=== PATIENT | female | born 1930 | race African-American/Black ===

== ENCOUNTER 2016-10-04 23:52 | Inpatient (IN) | payer MEDICARE, OTHER ==
--- NOTE | ~2016-10-04 | HP ---
History And Physical [place] [id number] [facility] [place]. [address] NAME: JESSICA URENA : 31 STATUS : ADM Elizabeth PAT#: [id number] AGE: 86 ADM/REG DATE : 10/04/16 MR#: [id number] REPORT SERV DATE: 10/05/16 DICTATED BY: DATE: REPORT STATUS : Draft TRANSCRIBED BY: MODL DATE: 10/05/16 DATE OF ADMISSION: 10/04/2016 CHIEF COMPLAINT: Bleeding from left ear. HISTORY OF PRESENT ILLNESS: Ms Urena is an 86-year-old black female with end-stage renal disease, dialyzes Monday, Monday, and Monday at [facility]. She has AFib with RVR, on Coumadin, followed by Dr. Aquino. Apparently, she had been Dr. Aquino's office, her INR was high. She was told if she experience any bleeding to present to the emergency department. She developed bleeding from her left ear canal, and therefore, presented to the ER. INR was found to be 8.4. H and H have been stable. Given this, she has been admitted for further evaluation. She denies any shortness of breath, chest pain, tightness, or pressure. No fevers or chills. PAST MEDICAL HISTORY: End-stage renal disease; vertigo; AFib; osteoarthritis; diabetes; hypertension; gout; obstructive sleep apnea; asthma, wears chronic O2 at home; secondary hyperparathyroidism and peripheral neuropathy. SOCIAL HISTORY: She has a son who lives with her. No tobacco, alcohol, or illicit drug use. FAMILY MEDICAL HISTORY: No end-stage renal disease. ALLERGIES: NONE. MEDICATIONS: Coumadin is being held, albuterol, allopurinol, aspirin, Lipitor, Alphagan, digoxin, Neurontin, insulin, Levemir, Imdur, lisinopril, Antivert, and Renvela. REVIEW OF SYSTEMS: A 12-point review of systems was obtained and negative with the exception of that in the HPI. PHYSICAL EXAMINATION: VITAL SIGNS: Temp 98.4, blood pressure is 116/60, pulse 80, respiratory rate 24, and O2 saturation of 98% on 3 liters. GENERAL: This is a pleasant, cooperative, chronically ill-appearing black female. She is awake, alert, and oriented x3, in no acute distress, answers questions appropriately. HEENT: Normocephalic and atraumatic. Conjunctivae are clear. Sclerae are anicteric. To her left ear canal, there is dry dark blood. No active bleeding. Does not look swollen. No other drainage noted. Oral mucosa is moist. NECK: Supple. Carotids are brisk. Neck veins are flat. No lymphadenopathy. LUNGS: Respirations are even and unlabored. Breath sounds clear to auscultation. HEART: Rate is irregularly irregular. She does have a systolic murmur. No rub or gallop. ABDOMEN: Soft and nontender. Bowel sounds are active. No masses. No hepatosplenomegaly. No bruits. No CVA tenderness. BACK: Within normal limits. EXTREMITIES: With trace to 1+ pitting edema. History And Physical [address] [address] NAME: JESSICA URENA : 31 STATUS : ADM Elizabeth PAT#: [id number] AGE: 86 ADM/REG DATE : 10/04/16 MR#: [id number] REPORT SERV DATE: 10/05/16 DICTATED BY: DATE: REPORT STATUS : Draft TRANSCRIBED BY: MODL DATE: 10/05/16 SKIN: Warm, dry, and intact. No unusual rashes or skin lesions. NEURO: No focal deficits. Mood and affect, pleasant and appropriate. PERTINENT LABS AND X-RAYS: INR is down to 5 from 8.2. Sodium 145, potassium 4.1, chloride 106, BUN of 29, creatinine of 5.8, and calcium 8.2. LFTs are unremarkable. Albumin of 2.3. WBC 8.2, H and H 9 and 28, and platelets 391,000. Chest x-ray; some questionable edema versus fibrotic changes. CT of the abdomen negative with the exception of edema. CT of the head negative. IMPRESSION: 1. Coagulopathy in the setting of Coumadin. 2. Left ear bleeding. 3. Atrial fibrillation. 4. End-stage renal disease. 5. Diabetes. 6. Hypertension. PLAN: She has been given vitamin K, and we will follow INR. Cardiology has been consulted as well as ENT. She will have dialysis today. Hold Coumadin and aspirin and follow for any further bleeding. Follow H and H. Further orders and recommendations pending clinical course. LITTLE/PELON MEHRAN New / [id number] CC: Jignesh Rich Jr., D.O.
--- NOTE | ~2016-10-04 | CN ---
Consultation Report [place] [id number] [facility] [place]. [address] NAME: JESSICA URENA : 31 STATUS : ADM Elizabeth PAT#: [id number] AGE: 86 ADM/REG DATE : 10/04/16 MR#: [id number] REPORT SERV DATE: 10/05/16 DICTATED BY: AMRIT NGUYỄN DATE: 10/05/16 REPORT STATUS : Draft TRANSCRIBED BY: MODL DATE: 10/05/16 CARDIOVASCULAR CONSULTATION DATE OF CONSULTATION: This is a cardiovascular consultation requested by Dr. Regis Bravo. INDICATION: Atrial fibrillation, elevated INR. HISTORY OF PRESENT ILLNESS: Ms Urena is an 86-year-old woman, previously followed by Dr. Antony Aquino at [place] for cardiology care. She has a history of hypertension; hypercholesterolemia; type 2 diabetes; and end-stage renal disease, on hemodialysis. She has a history of chronic diastolic congestive heart failure and paroxysmal atrial fibrillation. She was hospitalized last month with atrial fibrillation. She converted spontaneously to sinus rhythm. She was started on Coumadin. She was admitted with bleeding from her ear in the setting of an elevated INR of 8.4. Her initial EKG showed sinus rhythm with PACs. Subsequent EKG shows rate controlled atrial fibrillation. She is not having any chest pain. She has some mild dyspnea. PAST MEDICAL HISTORY: 1. Hypertension. 2. Hypercholesterolemia. 3. Type 2 diabetes. 4. End-stage renal disease, on hemodialysis. 5. Chronic diastolic congestive heart failure. 6. Paroxysmal atrial fibrillation. SOCIAL HISTORY: She does not smoke or drink alcohol. FAMILY HISTORY: There is no family history of early coronary artery disease. REVIEW OF SYSTEMS: A complete review of systems was obtained, which is negative in detail except as mentioned above in the HPI. ALLERGIES: NO KNOWN DRUG ALLERGIES. MEDICATIONS: Albuterol, allopurinol 100 mg daily, aspirin 81 mg daily, Lipitor 20 mg daily, eye drops, digoxin 0.125 mg daily, Neurontin, insulin, Imdur 30 mg a day, Prinivil 2.5 mg daily, meclizine, Renvela, and Coumadin. PHYSICAL EXAMINATION: VITAL SIGNS: Blood pressure 105/52, heart rate of 75, respiratory rate of 14. GENERAL: Comfortable in no acute distress. Consultation Report [place] [id number] [facility] [place]. [address] NAME: JESSICA URENA : 31 STATUS : ADM Elizabeth PAT#: [id number] AGE: 86 ADM/REG DATE : 10/04/16 MR#: [id number] REPORT SERV DATE: 10/05/16 DICTATED BY: AMRIT NGUYỄN DATE: 10/05/16 REPORT STATUS : Draft TRANSCRIBED BY: PELON DATE: 10/05/16 HEENT: Anicteric. No xanthelasma. Lips without cyanosis. NECK: No JVD. Carotids 2+ and symmetric. No carotid bruits. LUNGS: CTA bilaterally. No wheezes or rhonchi. No accessory muscle use. COR: Irregularly irregular. Normal S1 and S2. ABD: Soft, nontender, nondistended. Normal bowel sounds. No abdominal bruits. EXT: No clubbing, cyanosis or edema 2+ and symmetric distal pulses. SKIN: Warm. Dry. No venous stasis changes. MS: No kyphosis. NEURO/PSYCH: Oriented x3. No anxiety or depression. LABORATORY STUDIES: Potassium of 4.2, creatinine of 5.7, and INR of 8.4. EKG: A 12-lead EKG shows atrial fibrillation, 75 beats per minute. Right bundle-branch block pattern. Nonspecific T-wave abnormalities noted. IMPRESSION: This is an 86-year-old woman with a history of end-stage renal disease, on hemodialysis and paroxysmal atrial fibrillation. It appears she is relatively asymptomatic even when in atrial fibrillation. Her rate appears controlled. It may be reasonable simply to continue her anticoagulation watermaster, although at a lower dose of Coumadin for an INR goal of 2 to 3. I do not think a cardioversion is the appropriate step since she seems rate controlled and asymptomatic and is going frequently in between atrial fibrillation and normal sinus rhythm. BENJAMIN/PELON rit Nguyễn M.D. / [id number] CC: Jignesh Rich Jr., D.OCassandra
[~2016-10-04 23:52] MED LIST: ALBUTEROL PO; ALPHAGAN OPH; ALPHAGAN P0.1 % OPH; ALPHAGAN P0.15 % OPH; APRES50 PO; ASAB PO; C1 PO; CEFT2 PO; CENTRUM TAB1 TAB OR; COREG12 PO; COREG6 PO; COUMADIN4 MG PO; DCN100 PO; DEMA100 PO; DOCUSOFT S100 MG PO; DSS PO; HALF81 PO; HYDROCODONE; IMDUR30 PO; INSULIN; ISOSORB DIN30 MG PO; KLOR-CON M2020 MEQ PO; LANTUS FOR SC; LANTUS SC; LEVEMIR SC; LIPITOR20 PO; LORTAB 5 PO; MCZ125; MCZ125 PO; METOLAZONE5 MG OR; MIRALAXPKT PO; NEUR100 PO; NOVOLOG SC; PRILO PO; PRIN2.5 PO; PROAIR HFA INH; RENVELA800 MG PO; ROCALTROL 0.0.25 MCG OR; SENSIPAR90 MG PO; SEVE800T PO; STARLIX120 PO; SULAR25.5 MG PO; TRAVATAN OPH; VITD PO; VYTORIN 10/20 T1 TAB PO; Z100 PO; Z5 PO
[2016-10-05 00:47] LABS: BASOPHILS 0.2 %; BASOPHILS ABSOLUTE 0.02 10/3/uL (0.0-0.16); EOSINOPHILS ABSOLUTE 0.08 10/3/uL (0.0-0.53); HEMATOCRIT 30.4 % (36.0-48.0); IMMATURE GRANULOCYTES 0.4 %; IMMATURE GRANULOCYTES ABSOLUTE 0.03 10/3/uL (0.0-0.11); LYMPHOCYTES 14.9 %; LYMPHOCYTES ABSOLUTE 1.23 10/3/uL (0.67-4.30); MEAN CORPUS HGB CONC 32.9 g/dL (32.0-36.0); MEAN CORPUSCULAR HEMOGLOB 31.3 pg (26.0-34.0); MEAN CORPUSCULAR VOLUME 95.3 fL (80-100); MEAN PLATELET VOLUME 9.4 fL (9.2-13.0); MONOCYTES 12.8 %; MONOCYTES ABSOLUTE 1.06 10/3/uL (0.21-1.20); NEUTROPHILS 70.7 %; NEUTROPHILS ABSOLUTE 5.86 10/3/uL (2.02-8.40); RBC DISTRIBUTION WIDTH 14.7 % (12.0-16.0); RED CELL COUNT 3.19 10/6/uL (4.0-5.6)
[2016-10-05 00:48] LABS: ER CBC TAT 0 Hrs 11 MinsNP; MANUAL DIFF NO %; PLATELET COUNT 402 10/3/uL (150-400); WHITE BLOOD CELLS 8.3 10/3/uL (4.5-10.5)
[2016-10-05 00:58] LABS: A/G RATIO 0.7 (0.7-1.9); ALBUMIN 2.6 G/DL (3.5-5.0); ALKALINE PHOSPHATASE 220 U/L (45-117); BUN (BLOOD UREA NITROGEN) 46 MG/DL (6-23); CALCIUM, SERUM 8.4 MG/DL (8.5-10.4); CHLORIDE, SERUM 105 MMOL/L (96-112); CO2 (CARBON DIOXIDE) 28 MMOL/L (24-34); CREATININE 5.71 MG/DL (0.55-1.02); GFR AFRICAN AMERICAN 7 ML/MIN (>=60); GFR NON AFRICAN AMERICAN 6 ML/MIN (>=60); GLOBULIN 3.6 G/DL (2.5-4.1); GLUCOSE, SERUM 128 MG/DL (60-99); POTASSIUM, SERUM 4.2 MMOL/L (3.5-5.3); SGOT(AST) 9 U/L (5-40); SGPT(ALT) 8 U/L (5-65); SODIUM, SERUM 145 MMOL/L (135-148); TOTAL BILIRUBIN 0.4 MG/DL (0-1.2); TOTAL PROTEIN 6.2 G/DL (6.0-8.5)
[2016-10-05 01:00] LABS: INTERNATIONAL NORMAL RATI 8.4 UNITS (-); PROTIME (NOT ORD) 68.9 SEC (12.0-14.5)
[2016-10-05] MEDS ORDERED: SEVE800T PO (03:58)
[2016-10-05] MEDS ORDERED: PROAIR HFA INH (04:02)
[2016-10-05] MEDS ORDERED: LAN125 PO (04:04)
[2016-10-05 07:51] LABS: BASOPHILS 0.4 %; BASOPHILS ABSOLUTE 0.03 10/3/uL (0.0-0.16); EOSINOPHILS ABSOLUTE 0.16 10/3/uL (0.0-0.53); HEMATOCRIT 28.9 % (36.0-48.0); HEMOGLOBIN 9.4 g/dL (12.0-16.0); IMMATURE GRANULOCYTES 0.2 %; IMMATURE GRANULOCYTES ABSOLUTE 0.02 10/3/uL (0.0-0.11); LYMPHOCYTES 15.8 %; LYMPHOCYTES ABSOLUTE 1.29 10/3/uL (0.67-4.30); MANUAL DIFF NO %; MEAN CORPUS HGB CONC 32.5 g/dL (32.0-36.0); MEAN CORPUSCULAR VOLUME 95.4 fL (80-100); MEAN PLATELET VOLUME 9.6 fL (9.2-13.0); MONOCYTES ABSOLUTE 1.06 10/3/uL (0.21-1.20); NEUTROPHILS 68.6 %; PLATELET COUNT 391 10/3/uL (150-400); RBC DISTRIBUTION WIDTH 14.8 % (12.0-16.0); RED CELL COUNT 3.03 10/6/uL (4.0-5.6); WHITE BLOOD CELLS 8.2 10/3/uL (4.5-10.5)
[2016-10-05 08:06] LABS: A/G RATIO 0.7 (0.7-1.9); ALBUMIN 2.3 G/DL (3.5-5.0); ALKALINE PHOSPHATASE 204 U/L (45-117); BUN (BLOOD UREA NITROGEN) 49 MG/DL (6-23); CALCIUM, SERUM 8.2 MG/DL (8.5-10.4); CHLORIDE, SERUM 106 MMOL/L (96-112); CO2 (CARBON DIOXIDE) 27 MMOL/L (24-34); CREATININE 5.88 MG/DL (0.55-1.02); GFR AFRICAN AMERICAN 7 ML/MIN (>=60); GFR NON AFRICAN AMERICAN 6 ML/MIN (>=60); GLOBULIN 3.4 G/DL (2.5-4.1); GLUCOSE, SERUM 117 MG/DL (60-99); POTASSIUM, SERUM 4.1 MMOL/L (3.5-5.3); SGOT(AST) 10 U/L (5-40); SGPT(ALT) 8 U/L (5-65); SODIUM, SERUM 145 MMOL/L (135-148); TOTAL BILIRUBIN 0.4 MG/DL (0-1.2); TOTAL PROTEIN 5.7 G/DL (6.0-8.5)
[2016-10-05 17:24] LABS: INTERNATIONAL NORMAL RATI 2.1 UNITS (-)
[2016-10-05 17:27] LABS: PROTIME (NOT ORD) 23.3 SEC (12.0-14.5)
[2016-10-06 07:01] LABS: BASOPHILS 0.5 %; BASOPHILS ABSOLUTE 0.03 10/3/uL (0.0-0.16); EOSINOPHILS 6.2 %; EOSINOPHILS ABSOLUTE 0.37 10/3/uL (0.0-0.53); HEMATOCRIT 32.1 % (36.0-48.0); IMMATURE GRANULOCYTES 0.5 %; IMMATURE GRANULOCYTES ABSOLUTE 0.03 10/3/uL (0.0-0.11); LYMPHOCYTES 21.2 %; LYMPHOCYTES ABSOLUTE 1.27 10/3/uL (0.67-4.30); MANUAL DIFF NO %; MEAN CORPUS HGB CONC 31.2 g/dL (32.0-36.0); MEAN CORPUSCULAR VOLUME 96.4 fL (80-100); MEAN PLATELET VOLUME 9.2 fL (9.2-13.0); MONOCYTES 15.4 %; MONOCYTES ABSOLUTE 0.92 10/3/uL (0.21-1.20); NEUTROPHILS 56.2 %; NEUTROPHILS ABSOLUTE 3.37 10/3/uL (2.02-8.40); PLATELET COUNT 367 10/3/uL (150-400); RBC DISTRIBUTION WIDTH 14.6 % (12.0-16.0); RED CELL COUNT 3.33 10/6/uL (4.0-5.6)
[2016-10-06 07:03] LABS: INTERNATIONAL NORMAL RATI 1.6 UNITS (-)
[2016-10-06 07:04] LABS: PROTIME (NOT ORD) 18.8 SEC (12.0-14.5)
[2016-10-06 07:13] LABS: ALBUMIN 2.2 G/DL (3.5-5.0); CALCIUM, SERUM 8.4 MG/DL (8.5-10.4); CHLORIDE, SERUM 102 MMOL/L (96-112); CO2 (CARBON DIOXIDE) 29 MMOL/L (24-34); GLUCOSE, SERUM 98 MG/DL (60-99); POTASSIUM, SERUM 3.7 MMOL/L (3.5-5.3); SODIUM, SERUM 142 MMOL/L (135-148)
[2016-10-06 07:14] LABS: BUN (BLOOD UREA NITROGEN) 31 MG/DL (6-23); CREATININE 4.14 MG/DL (0.55-1.02); GFR AFRICAN AMERICAN 11 ML/MIN (>=60); GFR NON AFRICAN AMERICAN 9 ML/MIN (>=60); PHOSPHORUS, SERUM 3.2 MG/DL (2.5-4.5)
[2016-10-06] MEDS ORDERED: OCUFLOX OPH (15:23)
== END 2016-10-06 17:48 | disposition home health service (06) | DRG 813 ==
LOC: ER 23:52 → 1SO 23:59
PROVIDERS: Emergency Medicine; Internal Medicine Cardiovascular Disease; Internal Medicine Nephrology; Nurse Practitioner Family
PROC: 5A1D00Z (ICD-10-PCS; principal; 2016-10-05)
DX: D68.32 Hemorrhagic disorder due to extrinsic circulating anticoagulants (principal); I13.2 Hypertensive heart and chronic kidney disease with heart failure and with stage 5 chronic kidney disease, or end stage renal disease; N18.6 End stage renal disease; I50.32 Chronic diastolic (congestive) heart failure; E11.22 Type 2 diabetes mellitus with diabetic chronic kidney disease; I48.0 Paroxysmal atrial fibrillation; Z99.81 Dependence on supplemental oxygen; J45.909 Unspecified asthma, uncomplicated; G47.33 Obstructive sleep apnea (adult) (pediatric); H92.22 Otorrhagia, left ear; E78.00 Pure hypercholesterolemia, unspecified; T45.525A Adverse effect of antithrombotic drugs, initial encounter; Z99.2 Dependence on renal dialysis; Z79.4 Long term (current) use of insulin; Z79.82 Long term (current) use of aspirin; Z79.01 Long term (current) use of anticoagulants
CPT/HCPCS: 36415; 70450; 71020; 74176; 80053; 80069; 82962; 85025; 85610; 86850; 86900; 86901; 93005; 94640; 96374; 97162-GP; 99291; A9270-GY; G0257; G8978-CK-GP; G8979-CI-GP; J3430

== ENCOUNTER 2016-10-13 08:40 | Inpatient (IN) | payer MEDICARE, OTHER ==
--- NOTE | ~2016-10-13 | DS ---
Discharge Summary [facility] [address] [place]. [address] NAME: JESSICA URENA : 32 STATUS : DIS IN PAT#: [id number] AGE: 86 ADM/REG DATE : 10/13/16 MR#: [id number] REPORT SERV DATE: 11/02/16 DICTATED BY: MEENA TARANGO DATE: 11/01/16 REPORT STATUS : Draft TRANSCRIBED BY: PELON DATE: 11/01/16 Data Collection from hospitalization DISCHARGE DIAGNOSES: 1. Shortness of breath/pulmonary edema. 2. Paroxysmal atrial fibrillation. 3. End-stage renal disease. 4. Diabetes mellitus. 5. Hypertension. 6. Obstructive sleep apnea. 7. Gout. 8. History of smoke exposure at home. 9. Hypothyroidism. 10.Peripheral neuropathy. CONSULTATIONS: Dr. Jf Rose. Dr. Amrit Orta. PROCEDURES PERFORMED: CT scan of the chest without contrast, 10/13/2016. DISCHARGE MEDICATIONS: Zyloprim 100 mg daily; aspirin 162 mg daily; Alphagan one drop twice a day; Lanoxin 0.125 mg on Tuesdays, , and Saturdays; guaifenesin 600 mg twice a day; NovoLog injection insulin as instructed; Protonix 40 mg before breakfast; Coumadin as instructed; glucose three tablets as needed; Robitussin AC 10 mL every four hours as needed; [place] 5/325 one tablet every four hours as needed; Ativan 0.5 mg at bedtime as needed; Antivert 12.5 mg every eight hours as needed; nitroglycerin 0.4 mg sublingually as needed; Proventil 1.5 mL via inhaler every two hours as needed and two puffs via inhaler as needed. CONDITION AT DISCHARGE: Stable. DISPOSITION: The patient was discharged to [facility] on a renal/diabetic diet with activities as instructed. HOSPITAL COURSE: This is an 86-year-old female, who has end-stage renal disease. She undergoes dialysis on Mondays, Wednesdays, and Fridays through a right upper arm AV fistula. She has a history of paroxysmal atrial fibrillation. She had been started on Coumadin during an admission here at [facility] from 09/19/2016 through 09/23/2016. She had been seen by Cardiology during that hospitalization. She did not undergo cardioversion. Echocardiogram at that time showed an ejection fraction 55% with severe left ventricular hypertrophy, restrictive diastolic dysfunction, and right ventricular systolic pressure of 34 mmHg. She went home on Coumadin only to be re-admitted on 10/04/2016 with an INR level of 8.4 and bleeding from her left ear canal. ENT was consulted, but apparently she was never seen by them during that hospitalization. Her Coumadin was reduced and her INR level normalized. She went home on 10/06/2016. On the day of this admission, she was brought in by her family for worsening dyspnea. She wears chronic oxygen at home. Her chest x-ray showed bilateral "parenchymal scarring." Her white count was 10,300. Influenza was negative. She had an INR level of 2.0. She was admitted to the hospital for further evaluation and treatment. Discharge Summary [address] [address] NAME: JESSICA URENA : 31 STATUS : DIS IN PAT#: [id number] AGE: 86 ADM/REG DATE : 10/13/16 MR#: [id number] REPORT SERV DATE: 11/02/16 DICTATED BY: MEENA TARANGO DATE: 11/01/16 REPORT STATUS : Draft TRANSCRIBED BY: PELON DATE: 11/01/16 Upon admission, influenza A and B were negative. INR level was 1.2. Creatinine was 4.6. She was going to undergo extra dialysis and ultrafiltration. The reason for her dyspnea at this time was unclear. Empiric antibiotics were going to begin. She was seen in consultation by Dr. Jf Rose regarding possible pneumonia. The patient was chronically on 3 L of supplemental oxygen. She has a cough that is not productive of purulent sputum. She is not on bronchodilator medications at home. There is no clear history of intrinsic lung disease. CT scan was ordered to better look at her parenchyma. Albuterol would be given half dose as needed for worsening respiratory distress. Oxygen would be titrated to maintain saturations in the 90% to 94% range. The patient was empirically placed on HCAP coverage. Azithromycin was discontinued. Levaquin was continued. Vancomycin was going to be dosed here by the pharmacy with bolus dosing and cefepime per dialysis dosing. Repeat procalcitonin level would be checked the following day. Sputum was sent for Gram stain and culture. Flu screen was negative. Troponin would be added to the blood work. Outpatient medications were continued. A CT scan of the chest without contrast was performed. The following day, her CT had shown patchy ground glass and a 3-mm nodule. Chest x-ray showed vascular congestion. She did have a dry cough. She had no wheezing. She said she was not feeling better. She still has some shortness of breath. Her INR level was 2.2. Heparin drip was started. The dose was increased. She had a normal respiratory effort. She had no edema. Vancomycin/cefepime were stopped. She had mild edema. She was evaluated by Occupational Therapy. On 10/17/2016, hemodialysis therapy was performed. She was seen by Dr. Amrit Orta regarding dyspnea and chest discomfort. She had some worsening dyspnea and a cough. There was a report of chest pain on hemodialysis. Creatinine level was 6.81. It was felt that there may be a component of [id number] diastolic congestive heart failure. He agreed with plans to run her a bit dryer at hemodialysis. Her troponins did not seem consistent with acute coronary syndrome. He was not very anxious to pursue an invasive cardiac strategy as she has a relative poor baseline functional status. It was felt that her chest pain may be more musculoskeletal in the context of coughing. For now, he recommended continued medical management. Today, she was evaluated by Occupational and Physical Therapy. Her shortness of breath had improved. She had no chest pain. Echocardiogram revealed normal ejection fraction of 65%. She had positive left ventricular hypertrophy. Her nuclear stress test showed no ischemia. Coumadin was continued. She was in a sinus rhythm with frequent PACs. Sliding scale insulin continued. She was hypotensive at times. On 10/20/2016, she continued to have a cough and shortness of breath. She had no edema. She continued to undergo hemodialysis therapy. Discharge planning was performed. She underwent heart failure education. On 10/22/2016, her shortness of breath had improved. She still had a cough with green sputum. Discharge instructions were given. Due to her improved and stable condition, she was discharged to [facility] with the above-stated instructions. Information collected by: Alison Garcia I submit the above information as my discharge summary. Discharge Summary [place] [address] [place]. [address] NAME: JESSICA URENA : 31 STATUS : DIS IN PAT#: [id number] AGE: 86 ADM/REG DATE : 10/13/16 MR#: [id number] REPORT SERV DATE: 11/02/16 DICTATED BY: MEENA TARANGO DATE: 11/01/16 REPORT STATUS : Draft TRANSCRIBED BY: PELON DATE: 11/01/16 TG/PELON Meena Tarango M.D. / [id number] CC: Jf Holland M.D. [facility] Jignesh Hill MD
--- NOTE | ~2016-10-13 | CN ---
Consultation Report [facility] [address] [place]. [address] NAME: JESSICA URENA : 31 STATUS : ADM IN PAT#: [id number] AGE: 86 ADM/REG DATE : 10/13/16 MR#: [id number] REPORT SERV DATE: 10/13/16 DICTATED BY: EDA ROSE IV DATE: 10/13/16 REPORT STATUS : Draft TRANSCRIBED BY: PELON DATE: 10/13/16 PULMONARY CONSULTATION DATE OF CONSULTATION: 10/13/2016 REQUESTING PHYSICIAN: Eda Holland M.D. REASON FOR REQUEST: Possible pneumonia. HISTORY OF PRESENT ILLNESS: History was obtained from the records and from the patient. Ms Urena is an 86-year-old -[place] female with a history of end-stage renal disease, on dialysis, diabetes mellitus, hypertension, recent-onset atrial fibrillation, left ventricular hypertrophy with diastolic heart dysfunction and secondary hyperthyroidism, as well as peripheral neuropathy, who presents with several weeks of dry and nonproductive cough, intermittent chills, and persistent shortness of breath. The patient recently underwent hospitalization with findings of atrial fibrillation with rapid ventricular response. She has undergone medication adjustments and is currently in sinus rhythm. She has had intermittent chest pain, though no perceived palpitations. She has been persistently more short of breath particularly with exertion. There has been no significant peripheral edema, though mild orthopnea. She has intermittent chills for two weeks with a dry and nonproductive cough. There was no exposure to any ill individuals. Her cough is not productive of purulent sputum production. She is chronically on 3 L of supplemental oxygen. She thinks they have been able to pull her to her dry weight. She is not on bronchodilator medications at home. Because of worsening symptoms, she sought evaluation in the emergency room and was admitted. Chest x-ray demonstrates chronic patchy interstitial markings; however, that has reportedly unchanged from earlier studies. PULMONARY HISTORY: Remarkable for no history of childhood asthma. She was told as a young adult, she may have asthma, though has never been on bronchitis medication. She has had pneumonia in the past. She has a 5-pack-year smoking history having quit in her early 20s. She is up-to-date on her immunizations. PAST MEDICAL HISTORY: 1. End-stage renal disease, on dialysis. 2. Diabetes mellitus. 3. Hypertension. 4. Recent atrial fibrillation. 5. Hypothyroidism. 6. Peripheral neuropathy. 7. Obstructive sleep apnea, intolerant of CPAP therapy. SURGERIES: 1. Left AV fistula and then right AV fistula. 2. Bilateral knee replacements. Consultation Report [facility] [address] [place]. [address] NAME: JESSICA URENA : 31 STATUS : ADM IN PAT#: [id number] AGE: 86 ADM/REG DATE : 10/13/16 MR#: [id number] REPORT SERV DATE: 10/13/16 DICTATED BY: EDA ROSE IV DATE: 10/13/16 REPORT STATUS : Draft TRANSCRIBED BY: PELON DATE: 10/13/16 3. Right hip replacement. 4. Hysterectomy. 5. Hernia repair. ALLERGIES: NO KNOWN DRUG ALLERGIES. CURRENT MEDICATIONS: The patient is on Coumadin, Imdur 30 mg daily, Levaquin 750 mg every 48 hours, azithromycin 500 mg daily, digoxin 0.125 mg daily, Levemir 8 units at bedtime, Prinivil 2.5 mg daily, Zyloprim 100 mg daily, and level 1 insulin sliding scale. SOCIAL HISTORY: Remarkable for minimal tobacco use as above. There is no alcohol or illicit drug use. She is . FAMILY HISTORY: Noncontributory. REVIEW OF SYSTEMS: Fourteen system reviewed, pertinent positives noted above. PHYSICAL EXAMINATION: GENERAL: This is a pleasant elderly -[place] female, in no current distress. She is on dialysis. VITAL SIGNS: Temperature is 98.2, respiratory rate is 22, saturation 100% on 4 L via nasal cannula, pulse is 98, and blood pressure is 113/51. HEENT: The patient is normocephalic, atraumatic. She has muddy sclerae. Extraocular movements are intact. She has nasal cannula in place. She has a partial plate on her lower jaw. She has a Mallampati 3 airway with narrowing of the posterior pharyngeal space. NECK: Without any palpable lymphadenopathy or thyromegaly. CHEST: The patient has a fresh vascular graft on the right, old vascular graft on the left. She has few inspiratory crackles at both bases. No wheezes or rhonchi are noted. CARDIOVASCULAR: Jugular venous pulsations appeared to be approximately 7 cm. She has 1+ carotid upstrokes. No obvious bruit. She has a distant regular S1, S2 with a 2/6 systolic murmur at the upper sternal border. There are occasional premature beats. Peripheral pulses are diminished. ABDOMEN: Soft and nontender. There are hypoactive bowel sounds. There is no palpable hepatosplenomegaly or mass. EXTREMITIES: Demonstrate no cyanosis, clubbing, edema, or palpable cords. She has the grafts noted. NEUROLOGIC: The patient is able to move all extremities. Strength is 5-/5 and she has decreased sensation in a stocking distribution. IMAGING: Chest x-ray demonstrates cardiomegaly. There is a, what I think more prominent patchy infiltrates more on the right than the left in the predominantly mid lung field. LABORATORY DATA: CBC: Hemoglobin 9.4, hematocrit 30.2, and platelet count was 303,000. White blood cell count 10.3. INR is 2. Procalcitonin level was 0.43. Sodium is 145, Consultation Report [address] [place]. [address] NAME: JESSICA URENA : 32 STATUS : [facility]#: [id number] AGE: 86 ADM/REG DATE : 10/13/16 MR#: [id number] REPORT SERV DATE: 10/13/16 DICTATED BY: EDA ROSE IV DATE: 10/13/16 REPORT STATUS : Draft TRANSCRIBED BY: PELON DATE: 10/13/16 potassium 4.1, chloride 108, bicarb 27, BUN 37, creatinine 4.63. Glucose of 110. Alkaline phosphatase is 258. Otherwise, unremarkable. ASSESSMENT AND PLAN: 1. Respiratory. The patient has no clear history of intrinsic lung disease. CT has been ordered to better look at her parenchyma. Albuterol will be given half dose as needed for worsening respiratory distress. Oxygen will be titrated to attain saturation in the 90% to 94% range. 2. Infectious disease. The patient will be empirically placed on HCAP coverage. Azithromycin will be discontinued. Levaquin will be continued. Vancomycin will be dosed here per Pharmacy with bolus dosing and cefepime per dialysis dosing, repeat procalcitonin level tomorrow. Sputum was sent for Gram stain and culture if possible. Flu screen was negative. 3. Cardiovascular. Troponin will be added to the blood in the lab. We will continue outpatient medications. 4. Renal. The patient is currently undergoing dialysis. 5. Hematologic. INR is low therapeutic, will be continued to be dosed. Thank you for consulting us. We will follow the patient with you. ZEUS/PELON Eda Rose IV, M.D. / [id number] CC: Eda Holland M.D.
--- NOTE | ~2016-10-13 | HP ---
History And Physical [facility] [address] [place]. [address] NAME: JESSICA URENA : [birth year] STATUS : DIS IN PAT#: [id number] AGE: 86 ADM/REG DATE : 10/13/16 MR#: [id number] REPORT SERV DATE: 10/27/16 DICTATED BY: EDA COSTELLO DATE: 10/13/16 REPORT STATUS : Draft TRANSCRIBED BY: MODCorby DATE: 10/13/16 DATE OF ADMISSION: 10/13/2016 CHIEF COMPLAINT: Dyspnea. HISTORY OF PRESENT ILLNESS: Ms Urena is a very pleasant 86-year-old female with ESRD, who goes to dialysis Monday, Monday, Monday at the [facility] through right upper arm AV fistula. She has a recent history of paroxysmal atrial fibrillation starting on Coumadin during an admission here at [facility] from 09/19/2016 to 09/23/2016. She was seen by Cardiology during that hospitalization. She did not undergo cardioversion. Echo at that time showed EF of 55% with severe LVH, restrictive diastolic dysfunction, and right ventricular systolic pressure of 34 mmHg. She went home on Coumadin only to be readmitted on 10/04/2016 with an INR of 8.4 and bleeding from her left ear canal. ENT was consulted, but apparently she was never seen by them during this hospitalization. Her Coumadin was reduced and INR was normalized. She went home on 10/06/2016. Today, she was brought in by family for worsening dyspnea. She wears chronic oxygen at home. Today, chest x-ray showed bilateral "parenchymal scarring." White count was 10,300. Influenza was negative. An INR was 2.0. There was no ABG, procalcitonin, or BNP done by the ER. PAST MEDICAL HISTORY: 1. ESRD Monday, Monday, Monday, [facility], right upper arm AV fistula. 2. Paroxysmal atrial fibrillation, on Coumadin. 3. Insulin-dependent diabetes mellitus. 4. Obstructive sleep apnea. 5. Hypertension. 6. Gout. 7. Home oxygen dependence. 8. History of osteoarthritis with bilateral knee replacements and right hip replacement. SOCIAL HISTORY: She is a , has a supportive son. She is exposed to smoke at home. REVIEW OF SYSTEMS: Significant for recent nonproductive cough and dyspnea starting today over usual baseline. She has had no fever or chills. PHYSICAL EXAMINATION: VITAL SIGNS: Temperature 97.6, pulse 114, respirations 24, blood pressure 117/51, 98% saturation on 4 L. GENERAL: She is an elderly distressed female with significant dyspnea, tachypnea, and diffuse rhonchi and crackles on exam. HEENT: Sclerae without icterus. Conjunctivae not injected. Oropharynx is clear. NECK: JVP is 8 to 10 cm. CARDIAC: Heart rate tachycardic and irregular with 2/6 murmur. ABDOMEN: Soft, nontender, nondistended. EXTREMITIES: Without edema. History And Physical [address] [place]. [address] NAME: JESSICA URENA : 31 STATUS : DIS IN PAT#: [id number] AGE: 86 ADM/REG DATE : 10/13/16 MR#: [id number] REPORT SERV DATE: 10/27/16 DICTATED BY: EDA COSTELLO DATE: 10/13/16 REPORT STATUS : Draft TRANSCRIBED BY: PELON DATE: 10/13/16 SKIN: Without rash. NEURO: Grossly nonfocal. Right upper arm fistula has palpable thrill, audible bruit. LABORATORY DATA: Sodium 145, potassium 4.1, BUN 37, creatinine 4.6, calcium 8.7, albumin 2.4, glucose 110. White count 10.3. INR 2. Hemoglobin 9.4, platelets 303,000. Influenza A and B were negative. ASSESSMENT AND PLAN: Ms Urena has end-stage renal disease, paroxysmal atrial fibrillation on Coumadin, insulin-dependent diabetes mellitus, sleep apnea, hypertension, oxygen dependence presents with dyspnea. Admit to the Renal Service. We will try extra dialysis and ultrafiltration today. The reason for her dyspnea at this time is unclear. Clinical suspicion for PE is low with chronic anticoagulation and INR of 2.0. She is afebrile with a white count of 10,300 and infectious etiologies need to be considered. She will be given empiric antibiotics. Check ABG, CT of the chest without contrast, nebulizers, Pulmonary consult. Would have a low threshold for transitioning to the IMCU or ICU if she does not clinically improve with hemodialysis. Family not in room at the time of evaluation. ESPERANZA/PELON Eda Costello M.D. / [id number] CC: Eda Costello M.D. [facility]
--- NOTE | ~2016-10-13 | CN ---
Consultation Report [place] [id number] [place]. [address] NAME: JESSICA URENA : [birth year] STATUS : ADM IN [facility]#: [id number] AGE: 86 ADM/REG DATE : 10/13/16 MR#: [id number] REPORT SERV DATE: 10/17/16 DICTATED BY: AMRIT NGUYỄN DATE: 10/17/16 REPORT STATUS : Draft TRANSCRIBED BY: MODL DATE: 10/17/16 CONSULTATION DATE OF CONSULTATION: 10/17/2016 CHIEF COMPLAINT: Dyspnea, chest discomfort. HISTORY OF PRESENT ILLNESS: This is an 86-year-old patient of Dr. Antony Aquino of [facility]. She has a number of cardiovascular risk factors including hypertension, hypercholesterolemia, type 2 diabetes, and end-stage renal disease on hemodialysis. She has been previously admitted with paroxysmal atrial fibrillation, but usually maintain sinus rhythm. She has had some worsening dyspnea and a cough. There is a report of chest pain on hemodialysis. PAST MEDICAL HISTORY: 1. Paroxysmal atrial fibrillation. 2. Hypertension. 3. Hyperlipidemia. 4. Type 2 diabetes. 5. End-stage renal disease, on hemodialysis. 6. Chronic diastolic congestive heart failure. 7. Sleep apnea. 8. Gout. 9. COPD. 10.Arthritis. 11.Peripheral neuropathy. SOCIAL HISTORY: She is a former smoker. She does not drink alcohol. FAMILY HISTORY: There is no family history of early coronary artery disease. REVIEW OF SYSTEMS: A complete review of systems was obtained, which is negative in detail except as mentioned above in the HPI. PHYSICAL EXAMINATION: VITAL SIGNS: Blood pressure 95/50, heart rate of 70, respiratory rate of 14. GENERAL: Comfortable in no acute distress. HEENT: Anicteric. No xanthelasma. Lips without cyanosis. NECK: No JVD. Carotids 2+ and symmetric. No carotid bruits. LUNGS: CTA bilaterally. No wheezes or rhonchi. No accessory muscle use. COR: RRR. Normally placed PMI. Normal S1 and S2. No murmurs, rubs or gallops. ABD: Soft, nontender, nondistended. Normal bowel sounds. No abdominal bruits. EXT: No clubbing, cyanosis or edema 2+ and symmetric distal pulses. Consultation Report [place] [id number] [place]. [address] NAME: JESSICA URENA DOB: [birth year] STATUS : ADM IN PAT#: [id number] AGE: 86 ADM/REG DATE : 10/13/16 MR#: [id number] REPORT SERV DATE: 10/17/16 DICTATED BY: AMRIT NGUYỄN DATE: 10/17/16 REPORT STATUS : Draft TRANSCRIBED BY: PELON DATE: 10/17/16 SKIN: Warm. Dry. No venous stasis changes. MS: No kyphosis. NEURO/PSYCH: Oriented x3. No anxiety or depression. LABORATORY STUDIES: Troponin of 0.15, 0.15, and 0.13. BNP of 456. Hematocrit of 25.9. Creatinine of 6.81, potassium of 4.8. EKG: A 12-lead EKG shows sinus rhythm with premature atrial contractions noted. Nonspecific T-wave abnormalities are noted. Echocardiogram from 10/15/2016 shows concentric left ventricular hypertrophy with preserved left ventricular systolic function, EF 60%. This is an 86-year-old woman with multiple medical problems as listed above. 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 Her troponins do not seem consistent with an acute coronary syndrome. I am not too anxious to pursue an invasive cardiac strategy as she has a relatively poor baseline functional status. I think her chest pain may be more musculoskeletal in the context of coughing. For now, I recommend continued medical management. BENJAMIN/PELON rit Nguyễn M.D. / [id number] CC: Jf Holland M.D.
[~2016-10-13 08:40] MED LIST changes: +LAN125 PO; +OCUFLOX OPH
[2016-10-13 09:29] LABS: BASOPHILS 0.3 %; BASOPHILS ABSOLUTE 0.03 10/3/uL (0.0-0.16); EOSINOPHILS 1.9 %; ER CBC TAT 0 Hrs 05 Mins; HEMATOCRIT 30.2 % (36.0-48.0); HEMOGLOBIN 9.4 g/dL (12.0-16.0); IMMATURE GRANULOCYTES 0.3 %; IMMATURE GRANULOCYTES ABSOLUTE 0.03 10/3/uL (0.0-0.11); LYMPHOCYTES 15.5 %; LYMPHOCYTES ABSOLUTE 1.59 10/3/uL (0.67-4.30); MANUAL DIFF NO %; MEAN CORPUS HGB CONC 31.1 g/dL (32.0-36.0); MEAN CORPUSCULAR HEMOGLOB 29.8 pg (26.0-34.0); MEAN CORPUSCULAR VOLUME 95.9 fL (80-100); MEAN PLATELET VOLUME 9.4 fL (9.2-13.0); MONOCYTES 8.6 %; MONOCYTES ABSOLUTE 0.88 10/3/uL (0.21-1.20); NEUTROPHILS 73.4 %; NEUTROPHILS ABSOLUTE 7.55 10/3/uL (2.02-8.40); PLATELET COUNT 303 10/3/uL (150-400); RBC DISTRIBUTION WIDTH 15.4 % (12.0-16.0); RED CELL COUNT 3.15 10/6/uL (4.0-5.6); WHITE BLOOD CELLS 10.3 10/3/uL (4.5-10.5)
[2016-10-13 09:39] LABS: INFLUENZA A SCREEN NEGATIVE (NEGATIVE); INFLUENZA B SCREEN NEGATIVE (NEGATIVE)
[2016-10-13 09:44] LABS: A/G RATIO 0.6 (0.7-1.9); ALBUMIN 2.4 G/DL (3.5-5.0); ALKALINE PHOSPHATASE 258 U/L (45-117); BUN (BLOOD UREA NITROGEN) 37 MG/DL (6-23); CALCIUM, SERUM 8.7 MG/DL (8.5-10.4); CHLORIDE, SERUM 108 MMOL/L (96-112); CO2 (CARBON DIOXIDE) 27 MMOL/L (24-34); CREATININE 4.63 MG/DL (0.55-1.02); GFR AFRICAN AMERICAN 9 ML/MIN (>=60); GFR NON AFRICAN AMERICAN 8 ML/MIN (>=60); GLOBULIN 3.7 G/DL (2.5-4.1); GLUCOSE, SERUM 110 MG/DL (60-99); POTASSIUM, SERUM 4.1 MMOL/L (3.5-5.3); SGOT(AST) 15 U/L (5-40); SGPT(ALT) 12 U/L (5-65); SODIUM, SERUM 145 MMOL/L (135-148); TOTAL BILIRUBIN 0.4 MG/DL (0-1.2); TOTAL PROTEIN 6.1 G/DL (6.0-8.5)
[2016-10-13] MEDS ORDERED: Z100 PO (11:36)
[2016-10-13] MEDS ORDERED: PROAIR HFA INH (11:36)
[2016-10-13] MEDS ORDERED: ALPHAGAN OPH (11:37)
[2016-10-13] MEDS ORDERED: LAN125 PO (11:37)
[2016-10-13] MEDS ORDERED: IMDUR30 PO (11:38)
[2016-10-13] MEDS ORDERED: LEVEMFLXPN SC (11:38)
[2016-10-13] MEDS ORDERED: MCZ125 PO (11:39)
[2016-10-13] MEDS ORDERED: PRIN2.5 PO (11:39)
[2016-10-13] MEDS ORDERED: COUMADIN3 MG PO (11:39)
[2016-10-13 11:56] LABS: PROTIME (NOT ORD) 22.8 SEC (12.0-14.5)
[2016-10-13 15:51] LABS: PROCALCITONIN 0.43 ng/mL (<0.5)
[2016-10-13 16:44] LABS: BE (BASE EXCESS) 4.3 MEQ/L (0 +/- 2.5); CARBOXYHEMOGLOBIN 0.2 % (0-3); DEVICE Nasal Cannula 4 l; HCO3 (ACTUAL BICARBONATE) 28.3 MEQ/L (23-27); HEMOBLOGIN CONTENT 10.3 G/DL (12-16); INSTRUMENT SERIAL # 8083; METHEMOGLOBIN 0.2 % (0-3); O2 CONTENT 14.1 VOL% (18-24); OPERATOR ID 35798; PCO2 (CO2 TENSION) 40 MMHG (35-45); PO2 (O2 TENSION) 86 MMHG (79-93); SAMPLE Arterial; pH 7.47 (7.37-7.43)
[2016-10-13 17:43] LABS: PROCALCITONIN 0.26 ng/mL (<0.5)
[2016-10-13 18:29] LABS: TROPONIN I 0.15 NG/ML (<0.05)
[2016-10-14 07:05] LABS: ALBUMIN 2.5 G/DL (3.5-5.0); BUN (BLOOD UREA NITROGEN) 32 MG/DL (6-23); CALCIUM, SERUM 8.9 MG/DL (8.5-10.4); CHLORIDE, SERUM 110 MMOL/L (96-112); CO2 (CARBON DIOXIDE) 25 MMOL/L (24-34); CREATININE 3.91 MG/DL (0.55-1.02); GFR AFRICAN AMERICAN 11 ML/MIN (>=60); GFR NON AFRICAN AMERICAN 10 ML/MIN (>=60); GLUCOSE, SERUM 39 MG/DL (60-99); POTASSIUM, SERUM 4.1 MMOL/L (3.5-5.3); SODIUM, SERUM 145 MMOL/L (135-148)
[2016-10-14 07:19] LABS: BASOPHILS 0.2 %; BASOPHILS ABSOLUTE 0.02 10/3/uL (0.0-0.16); EOSINOPHILS 2.1 %; EOSINOPHILS ABSOLUTE 0.18 10/3/uL (0.0-0.53); HEMATOCRIT 28.3 % (36.0-48.0); HEMOGLOBIN 9.1 g/dL (12.0-16.0); IMMATURE GRANULOCYTES 0.6 %; IMMATURE GRANULOCYTES ABSOLUTE 0.05 10/3/uL (0.0-0.11); LYMPHOCYTES 23.2 %; LYMPHOCYTES ABSOLUTE 1.99 10/3/uL (0.67-4.30); MEAN CORPUS HGB CONC 32.2 g/dL (32.0-36.0); MEAN CORPUSCULAR HEMOGLOB 30.7 pg (26.0-34.0); MEAN CORPUSCULAR VOLUME 95.6 fL (80-100); MEAN PLATELET VOLUME 9.3 fL (9.2-13.0); MONOCYTES 16.1 %; MONOCYTES ABSOLUTE 1.38 10/3/uL (0.21-1.20); NEUTROPHILS 57.8 %; NEUTROPHILS ABSOLUTE 4.96 10/3/uL (2.02-8.40); PLATELET COUNT 333 10/3/uL (150-400); RBC DISTRIBUTION WIDTH 15.3 % (12.0-16.0); RED CELL COUNT 2.96 10/6/uL (4.0-5.6); WHITE BLOOD CELLS 8.6 10/3/uL (4.5-10.5)
[2016-10-14 07:22] LABS: MANUAL DIFF NO %
[2016-10-14 07:37] LABS: PROCALCITONIN 0.31 ng/mL (<0.5)
[2016-10-14 10:26] LABS: INTERNATIONAL NORMAL RATI 2.1 UNITS (-); PROTIME (NOT ORD) 23.7 SEC (12.0-14.5)
[2016-10-14 12:35] LABS: C-REACTIVE PROTEIN 77.9 MG/L (<8.0)
[2016-10-15 06:00] LABS: ALBUMIN 2.5 G/DL (3.5-5.0); BUN (BLOOD UREA NITROGEN) 30 MG/DL (6-23); CALCIUM, SERUM 8.8 MG/DL (8.5-10.4); CHLORIDE, SERUM 105 MMOL/L (96-112); CO2 (CARBON DIOXIDE) 27 MMOL/L (24-34); CREATININE 3.92 MG/DL (0.55-1.02); GFR AFRICAN AMERICAN 11 ML/MIN (>=60); GFR NON AFRICAN AMERICAN 10 ML/MIN (>=60); POTASSIUM, SERUM 4.3 MMOL/L (3.5-5.3); SODIUM, SERUM 142 MMOL/L (135-148)
[2016-10-15 06:01] LABS: GLUCOSE, SERUM 120 MG/DL (60-99)
[2016-10-15 06:05] LABS: INTERNATIONAL NORMAL RATI 2.2 UNITS (-); PROTIME (NOT ORD) 23.9 SEC (12.0-14.5)
[2016-10-15 06:06] LABS: BASOPHILS 0.8 %; BASOPHILS ABSOLUTE 0.05 10/3/uL (0.0-0.16); EOSINOPHILS 4.7 %; HEMATOCRIT 27.3 % (36.0-48.0); HEMOGLOBIN 8.9 g/dL (12.0-16.0); IMMATURE GRANULOCYTES 0.2 %; IMMATURE GRANULOCYTES ABSOLUTE 0.01 10/3/uL (0.0-0.11); LYMPHOCYTES 18.5 %; LYMPHOCYTES ABSOLUTE 1.17 10/3/uL (0.67-4.30); MEAN CORPUS HGB CONC 32.6 g/dL (32.0-36.0); MEAN CORPUSCULAR HEMOGLOB 31.1 pg (26.0-34.0); MEAN CORPUSCULAR VOLUME 95.5 fL (80-100); MEAN PLATELET VOLUME 9.3 fL (9.2-13.0); MONOCYTES 16.1 %; MONOCYTES ABSOLUTE 1.02 10/3/uL (0.21-1.20); NEUTROPHILS 59.7 %; NEUTROPHILS ABSOLUTE 3.79 10/3/uL (2.02-8.40); PLATELET COUNT 299 10/3/uL (150-400); RBC DISTRIBUTION WIDTH 15.2 % (12.0-16.0); RED CELL COUNT 2.86 10/6/uL (4.0-5.6); WHITE BLOOD CELLS 6.3 10/3/uL (4.5-10.5)
[2016-10-15 06:11] LABS: MANUAL DIFF NO %
[2016-10-15 10:34] LABS: DIGOXIN 0.7 NG/ML (0.8-2.0)
[2016-10-16 07:28] LABS: BASOPHILS 0.5 %; BASOPHILS ABSOLUTE 0.03 10/3/uL (0.0-0.16); EOSINOPHILS 5.3 %; EOSINOPHILS ABSOLUTE 0.35 10/3/uL (0.0-0.53); HEMATOCRIT 26.6 % (36.0-48.0); HEMOGLOBIN 8.7 g/dL (12.0-16.0); IMMATURE GRANULOCYTES 0.5 %; IMMATURE GRANULOCYTES ABSOLUTE 0.03 10/3/uL (0.0-0.11); LYMPHOCYTES ABSOLUTE 1.38 10/3/uL (0.67-4.30); MEAN CORPUS HGB CONC 32.7 g/dL (32.0-36.0); MEAN CORPUSCULAR VOLUME 94.7 fL (80-100); MEAN PLATELET VOLUME 9.2 fL (9.2-13.0); MONOCYTES 13.1 %; MONOCYTES ABSOLUTE 0.86 10/3/uL (0.21-1.20); NEUTROPHILS 59.6 %; NEUTROPHILS ABSOLUTE 3.93 10/3/uL (2.02-8.40); PLATELET COUNT 311 10/3/uL (150-400); RBC DISTRIBUTION WIDTH 14.9 % (12.0-16.0); RED CELL COUNT 2.81 10/6/uL (4.0-5.6); WHITE BLOOD CELLS 6.6 10/3/uL (4.5-10.5)
[2016-10-16 07:31] LABS: MANUAL DIFF NO %
[2016-10-16 07:35] LABS: PROTIME (NOT ORD) 22.3 SEC (12.0-14.5)
[2016-10-16 07:39] LABS: ALBUMIN 2.5 G/DL (3.5-5.0); BUN (BLOOD UREA NITROGEN) 48 MG/DL (6-23); CALCIUM, SERUM 8.8 MG/DL (8.5-10.4); CHLORIDE, SERUM 104 MMOL/L (96-112); CO2 (CARBON DIOXIDE) 23 MMOL/L (24-34); CREATININE 5.28 MG/DL (0.55-1.02); GFR AFRICAN AMERICAN 8 ML/MIN (>=60); GFR NON AFRICAN AMERICAN 7 ML/MIN (>=60); GLUCOSE, SERUM 90 MG/DL (60-99); PHOSPHORUS, SERUM 3.6 MG/DL (2.5-4.5); POTASSIUM, SERUM 4.5 MMOL/L (3.5-5.3); SODIUM, SERUM 141 MMOL/L (135-148)
[2016-10-16 09:15] LABS: TROPONIN I 0.15 NG/ML (<0.05)
[2016-10-17 05:06] LABS: BASOPHILS 0.4 %; BASOPHILS ABSOLUTE 0.03 10/3/uL (0.0-0.16); EOSINOPHILS 4.6 %; EOSINOPHILS ABSOLUTE 0.33 10/3/uL (0.0-0.53); HEMATOCRIT 25.9 % (36.0-48.0); HEMOGLOBIN 8.4 g/dL (12.0-16.0); IMMATURE GRANULOCYTES 0.8 %; IMMATURE GRANULOCYTES ABSOLUTE 0.06 10/3/uL (0.0-0.11); LYMPHOCYTES 19.5 %; LYMPHOCYTES ABSOLUTE 1.39 10/3/uL (0.67-4.30); MEAN CORPUS HGB CONC 32.4 g/dL (32.0-36.0); MEAN CORPUSCULAR HEMOGLOB 30.7 pg (26.0-34.0); MEAN CORPUSCULAR VOLUME 94.5 fL (80-100); MEAN PLATELET VOLUME 9.4 fL (9.2-13.0); MONOCYTES 11.2 %; NEUTROPHILS 63.5 %; NEUTROPHILS ABSOLUTE 4.52 10/3/uL (2.02-8.40); PLATELET COUNT 305 10/3/uL (150-400); RBC DISTRIBUTION WIDTH 15.1 % (12.0-16.0); RED CELL COUNT 2.74 10/6/uL (4.0-5.6); WHITE BLOOD CELLS 7.1 10/3/uL (4.5-10.5)
[2016-10-17 05:11] LABS: MANUAL DIFF NO %
[2016-10-17 05:16] LABS: ALBUMIN 2.3 G/DL (3.5-5.0); CALCIUM, SERUM 8.7 MG/DL (8.5-10.4); CHLORIDE, SERUM 102 MMOL/L (96-112); CO2 (CARBON DIOXIDE) 24 MMOL/L (24-34); POTASSIUM, SERUM 4.7 MMOL/L (3.5-5.3); SODIUM, SERUM 139 MMOL/L (135-148)
[2016-10-17 05:18] LABS: PROTIME (NOT ORD) 22.7 SEC (12.0-14.5)
[2016-10-17 05:19] LABS: PARTIAL THROMBO TIME 72.9 SEC (22.5-37.2)
[2016-10-17 05:20] LABS: BUN (BLOOD UREA NITROGEN) 62 MG/DL (6-23); CREATININE 6.81 MG/DL (0.55-1.02); GFR AFRICAN AMERICAN 6 ML/MIN (>=60); GFR NON AFRICAN AMERICAN 5 ML/MIN (>=60); GLUCOSE, SERUM 132 MG/DL (60-99); TROPONIN I 0.13 NG/ML (<0.05)
[2016-10-17 11:04] LABS: ANA TITER <1:40 TITER
[2016-10-18 05:21] LABS: BASOPHILS 0.4 %; BASOPHILS ABSOLUTE 0.02 10/3/uL (0.0-0.16); EOSINOPHILS 3.1 %; EOSINOPHILS ABSOLUTE 0.15 10/3/uL (0.0-0.53); HEMATOCRIT 26.2 % (36.0-48.0); HEMOGLOBIN 8.7 g/dL (12.0-16.0); IMMATURE GRANULOCYTES 0.4 %; IMMATURE GRANULOCYTES ABSOLUTE 0.02 10/3/uL (0.0-0.11); LYMPHOCYTES ABSOLUTE 0.72 10/3/uL (0.67-4.30); MEAN CORPUS HGB CONC 33.2 g/dL (32.0-36.0); MEAN CORPUSCULAR HEMOGLOB 31.5 pg (26.0-34.0); MEAN CORPUSCULAR VOLUME 94.9 fL (80-100); MEAN PLATELET VOLUME 9.3 fL (9.2-13.0); MONOCYTES 16.8 %; MONOCYTES ABSOLUTE 0.81 10/3/uL (0.21-1.20); NEUTROPHILS 64.3 %; NEUTROPHILS ABSOLUTE 3.09 10/3/uL (2.02-8.40); PLATELET COUNT 290 10/3/uL (150-400); RBC DISTRIBUTION WIDTH 15.4 % (12.0-16.0); RED CELL COUNT 2.76 10/6/uL (4.0-5.6); WHITE BLOOD CELLS 4.8 10/3/uL (4.5-10.5)
[2016-10-18 05:22] LABS: INTERNATIONAL NORMAL RATI 2.2 UNITS (-); PROTIME (NOT ORD) 23.8 SEC (12.0-14.5)
[2016-10-18 05:23] LABS: MANUAL DIFF NO %
[2016-10-18 05:35] LABS: ALBUMIN 2.3 G/DL (3.5-5.0); CALCIUM, SERUM 8.3 MG/DL (8.5-10.4); CHLORIDE, SERUM 102 MMOL/L (96-112); CO2 (CARBON DIOXIDE) 26 MMOL/L (24-34); GLUCOSE, SERUM 125 MG/DL (60-99); PHOSPHORUS, SERUM 3.2 MG/DL (2.5-4.5); POTASSIUM, SERUM 4.5 MMOL/L (3.5-5.3); SODIUM, SERUM 139 MMOL/L (135-148)
[2016-10-18 05:38] LABS: BUN (BLOOD UREA NITROGEN) 35 MG/DL (6-23); CREATININE 4.45 MG/DL (0.55-1.02); GFR AFRICAN AMERICAN 10 ML/MIN (>=60); GFR NON AFRICAN AMERICAN 8 ML/MIN (>=60); TROPONIN I 0.13 NG/ML (<0.05)
[2016-10-19 08:05] LABS: BASOPHILS 0.3 %; BASOPHILS ABSOLUTE 0.02 10/3/uL (0.0-0.16); EOSINOPHILS 0.5 %; EOSINOPHILS ABSOLUTE 0.03 10/3/uL (0.0-0.53); HEMATOCRIT 24.9 % (36.0-48.0); HEMOGLOBIN 8.3 g/dL (12.0-16.0); IMMATURE GRANULOCYTES 0.5 %; IMMATURE GRANULOCYTES ABSOLUTE 0.03 10/3/uL (0.0-0.11); LYMPHOCYTES 15.7 %; LYMPHOCYTES ABSOLUTE 0.93 10/3/uL (0.67-4.30); MEAN CORPUS HGB CONC 33.3 g/dL (32.0-36.0); MEAN CORPUSCULAR VOLUME 92.9 fL (80-100); MEAN PLATELET VOLUME 9.2 fL (9.2-13.0); MONOCYTES ABSOLUTE 0.71 10/3/uL (0.21-1.20); NEUTROPHILS ABSOLUTE 4.19 10/3/uL (2.02-8.40); PLATELET COUNT 271 10/3/uL (150-400); RBC DISTRIBUTION WIDTH 15.4 % (12.0-16.0); RED CELL COUNT 2.68 10/6/uL (4.0-5.6); WHITE BLOOD CELLS 5.9 10/3/uL (4.5-10.5)
[2016-10-19 08:06] LABS: MANUAL DIFF NO %
[2016-10-19 08:16] LABS: ALBUMIN 2.6 G/DL (3.5-5.0); BUN (BLOOD UREA NITROGEN) 52 MG/DL (6-23); CALCIUM, SERUM 8.1 MG/DL (8.5-10.4); CHLORIDE, SERUM 100 MMOL/L (96-112); CO2 (CARBON DIOXIDE) 23 MMOL/L (24-34); GFR AFRICAN AMERICAN 6 ML/MIN (>=60); GFR NON AFRICAN AMERICAN 6 ML/MIN (>=60); GLUCOSE, SERUM 103 MG/DL (60-99); PHOSPHORUS, SERUM 3.6 MG/DL (2.5-4.5); POTASSIUM, SERUM 4.4 MMOL/L (3.5-5.3); SODIUM, SERUM 137 MMOL/L (135-148)
[2016-10-19 09:36] LABS: INTERNATIONAL NORMAL RATI 1.9 UNITS (-); PROTIME (NOT ORD) 21.6 SEC (12.0-14.5)
[2016-10-20 05:40] LABS: BASOPHILS 0.7 %; BASOPHILS ABSOLUTE 0.03 10/3/uL (0.0-0.16); EOSINOPHILS 0.9 %; EOSINOPHILS ABSOLUTE 0.04 10/3/uL (0.0-0.53); HEMATOCRIT 26.4 % (36.0-48.0); HEMOGLOBIN 8.4 g/dL (12.0-16.0); IMMATURE GRANULOCYTES 0.5 %; IMMATURE GRANULOCYTES ABSOLUTE 0.02 10/3/uL (0.0-0.11); LYMPHOCYTES 19.9 %; LYMPHOCYTES ABSOLUTE 0.85 10/3/uL (0.67-4.30); MEAN CORPUS HGB CONC 31.8 g/dL (32.0-36.0); MEAN CORPUSCULAR HEMOGLOB 30.5 pg (26.0-34.0); MEAN PLATELET VOLUME 9.3 fL (9.2-13.0); MONOCYTES 14.3 %; MONOCYTES ABSOLUTE 0.61 10/3/uL (0.21-1.20); NEUTROPHILS 63.7 %; NEUTROPHILS ABSOLUTE 2.73 10/3/uL (2.02-8.40); PLATELET COUNT 255 10/3/uL (150-400); RBC DISTRIBUTION WIDTH 15.6 % (12.0-16.0); RED CELL COUNT 2.75 10/6/uL (4.0-5.6); WHITE BLOOD CELLS 4.3 10/3/uL (4.5-10.5)
[2016-10-20 05:42] LABS: MANUAL DIFF NO %
[2016-10-20 05:47] LABS: PROTIME (NOT ORD) 22.2 SEC (12.0-14.5)
[2016-10-20 05:49] LABS: ALBUMIN 3.1 G/DL (3.5-5.0); CALCIUM, SERUM 8.7 MG/DL (8.5-10.4); CHLORIDE, SERUM 103 MMOL/L (96-112); CO2 (CARBON DIOXIDE) 27 MMOL/L (24-34); GFR AFRICAN AMERICAN 9 ML/MIN (>=60); GFR NON AFRICAN AMERICAN 8 ML/MIN (>=60); GLUCOSE, SERUM 95 MG/DL (60-99); PHOSPHORUS, SERUM 3.7 MG/DL (2.5-4.5); POTASSIUM, SERUM 5.1 MMOL/L (3.5-5.3); SODIUM, SERUM 139 MMOL/L (135-148)
[2016-10-20 05:50] LABS: BUN (BLOOD UREA NITROGEN) 33 MG/DL (6-23); CREATININE 4.77 MG/DL (0.55-1.02)
[2016-10-21 04:24] LABS: INTERNATIONAL NORMAL RATI 2.3 UNITS (-); PROTIME (NOT ORD) 24.9 SEC (12.0-14.5)
[2016-10-21 04:26] LABS: BASOPHILS 0.4 %; BASOPHILS ABSOLUTE 0.02 10/3/uL (0.0-0.16); EOSINOPHILS ABSOLUTE 0.05 10/3/uL (0.0-0.53); HEMATOCRIT 27.9 % (36.0-48.0); HEMOGLOBIN 8.9 g/dL (12.0-16.0); IMMATURE GRANULOCYTES 0.4 %; IMMATURE GRANULOCYTES ABSOLUTE 0.02 10/3/uL (0.0-0.11); LYMPHOCYTES 17.2 %; LYMPHOCYTES ABSOLUTE 0.83 10/3/uL (0.67-4.30); MEAN CORPUS HGB CONC 31.9 g/dL (32.0-36.0); MEAN CORPUSCULAR HEMOGLOB 30.4 pg (26.0-34.0); MEAN CORPUSCULAR VOLUME 95.2 fL (80-100); MONOCYTES 16.4 %; MONOCYTES ABSOLUTE 0.79 10/3/uL (0.21-1.20); NEUTROPHILS 64.6 %; NEUTROPHILS ABSOLUTE 3.12 10/3/uL (2.02-8.40); PLATELET COUNT 251 10/3/uL (150-400); RBC DISTRIBUTION WIDTH 15.5 % (12.0-16.0); RED CELL COUNT 2.93 10/6/uL (4.0-5.6); WHITE BLOOD CELLS 4.8 10/3/uL (4.5-10.5)
[2016-10-21 04:33] LABS: ALBUMIN 2.9 G/DL (3.5-5.0); BUN (BLOOD UREA NITROGEN) 49 MG/DL (6-23); CALCIUM, SERUM 7.9 MG/DL (8.5-10.4); CHLORIDE, SERUM 98 MMOL/L (96-112); CO2 (CARBON DIOXIDE) 26 MMOL/L (24-34); GFR AFRICAN AMERICAN 6 ML/MIN (>=60); GFR NON AFRICAN AMERICAN 5 ML/MIN (>=60); GLUCOSE, SERUM 97 MG/DL (60-99); PHOSPHORUS, SERUM 4.8 MG/DL (2.5-4.5); POTASSIUM, SERUM 5.9 MMOL/L (3.5-5.3); SODIUM, SERUM 137 MMOL/L (135-148)
[2016-10-21 04:44] LABS: MANUAL DIFF NO %
[2016-10-22 04:05] LABS: BASOPHILS 0.5 %; BASOPHILS ABSOLUTE 0.02 10/3/uL (0.0-0.16); EOSINOPHILS 1.2 %; EOSINOPHILS ABSOLUTE 0.05 10/3/uL (0.0-0.53); HEMATOCRIT 27.9 % (36.0-48.0); HEMOGLOBIN 8.9 g/dL (12.0-16.0); IMMATURE GRANULOCYTES 0.2 %; IMMATURE GRANULOCYTES ABSOLUTE 0.01 10/3/uL (0.0-0.11); LYMPHOCYTES 15.9 %; LYMPHOCYTES ABSOLUTE 0.67 10/3/uL (0.67-4.30); MEAN CORPUS HGB CONC 31.9 g/dL (32.0-36.0); MEAN CORPUSCULAR HEMOGLOB 30.6 pg (26.0-34.0); MEAN CORPUSCULAR VOLUME 95.9 fL (80-100); MEAN PLATELET VOLUME 9.4 fL (9.2-13.0); MONOCYTES ABSOLUTE 0.55 10/3/uL (0.21-1.20); NEUTROPHILS 69.2 %; NEUTROPHILS ABSOLUTE 2.92 10/3/uL (2.02-8.40); PLATELET COUNT 225 10/3/uL (150-400); RBC DISTRIBUTION WIDTH 15.2 % (12.0-16.0); RED CELL COUNT 2.91 10/6/uL (4.0-5.6); WHITE BLOOD CELLS 4.2 10/3/uL (4.5-10.5)
[2016-10-22 04:08] LABS: INTERNATIONAL NORMAL RATI 2.7 UNITS (-); PROTIME (NOT ORD) 28.4 SEC (12.0-14.5)
[2016-10-22 04:13] LABS: MANUAL DIFF NO %
[2016-10-22 04:17] LABS: ALBUMIN 3.1 G/DL (3.5-5.0); CALCIUM, SERUM 7.8 MG/DL (8.5-10.4); CHLORIDE, SERUM 100 MMOL/L (96-112); CO2 (CARBON DIOXIDE) 26 MMOL/L (24-34); GFR AFRICAN AMERICAN 8 ML/MIN (>=60); GFR NON AFRICAN AMERICAN 7 ML/MIN (>=60); GLUCOSE, SERUM 100 MG/DL (60-99); PHOSPHORUS, SERUM 4.3 MG/DL (2.5-4.5); SODIUM, SERUM 138 MMOL/L (135-148)
[2016-10-22 04:22] LABS: BUN (BLOOD UREA NITROGEN) 39 MG/DL (6-23); CREATININE 5.29 MG/DL (0.55-1.02); POTASSIUM, SERUM 4.7 MMOL/L (3.5-5.3)
== END 2016-10-22 16:42 | DRG 291 ==
LOC: ER 08:40 → 2SO 12:23
PROVIDERS: Emergency Medicine; Internal Medicine Nephrology; Nurse Practitioner; Physician Assistant Medical; Registered Nurse
PROC: 5A1D60Z (ICD-10-PCS; principal; 2016-10-13)
DX: I13.2 Hypertensive heart and chronic kidney disease with heart failure and with stage 5 chronic kidney disease, or end stage renal disease (principal); I50.33 Acute on chronic diastolic (congestive) heart failure; J18.9 Pneumonia, unspecified organism; J44.0 Chronic obstructive pulmonary disease with (acute) lower respiratory infection; N18.6 End stage renal disease; E11.22 Type 2 diabetes mellitus with diabetic chronic kidney disease; I27.2 Other secondary pulmonary hypertension; E11.42 Type 2 diabetes mellitus with diabetic polyneuropathy; E87.1 Hypo-osmolality and hyponatremia; J44.1 Chronic obstructive pulmonary disease with (acute) exacerbation; E78.5 Hyperlipidemia, unspecified; I45.10 Unspecified right bundle-branch block; M10.9 Gout, unspecified; I48.0 Paroxysmal atrial fibrillation; E05.80 Other thyrotoxicosis without thyrotoxic crisis or storm; G47.33 Obstructive sleep apnea (adult) (pediatric); Z96.641 Presence of right artificial hip joint; Z96.653 Presence of artificial knee joint, bilateral; Z99.2 Dependence on renal dialysis; Z87.891 Personal history of nicotine dependence; Z98.890 Other specified postprocedural states; Z99.81 Dependence on supplemental oxygen
CPT/HCPCS: 36600; 71010; 71250; 78452; 80053; 80069; 80162; 82805; 82962; 83735; 83880; 84145; 84484; 85025; 85610; 85652; 85730; 86039; 86140; 86431; 87040; 87804; 93005; 93017; 93306; 94640; 97110-GP; 97116-GP; 97161-GP; 97165-GO; 97530-GO; 99285; A9270-GY; A9502; G0257; G8978-CK-GP; G8979-CI-GP; G8987-CK-GO; G8988-CJ-GO; J0153; J0456; J0692; J0885; J1956; J3370; P9047

== ENCOUNTER 2016-10-23 02:18 | Inpatient (IN) | payer MEDICARE, OTHER ==
--- NOTE | ~2016-10-23 | DS ---
Discharge Summary [facility] [address] [place]. [address] NAME: JESSICA URENA : 32 STATUS : DIS IN PAT#: [id number] AGE: 86 ADM/REG DATE : 10/25/16 MR#: [id number] REPORT SERV DATE: 11/12/16 DICTATED BY: CLARK ADAMES DATE: 11/11/16 REPORT STATUS : Draft TRANSCRIBED BY: PEOLN DATE: 11/11/16 Data Collection from hospitalization DISCHARGE DIAGNOSES: 1. End-stage renal disease. 2. Atrial fibrillation. 3. Abdominal pain. 4. Reh-druegsb-tedwuuvdy diabetes mellitus. 5. Diastolic dysfunction. 6. Obstructive sleep apnea. 7. Hypertension. 8. Gout. 9. Osteoarthritis. CONSULTATIONS: Nelson Knott M.D., [facility], [facility] PROCEDURES: 1. Modified barium swallow study on 10/25/2016. 2. CT scan of the abdomen and pelvis with contrast on 10/28/2016. 3. Gallbladder ultrasound on 10/29/2016. DISCHARGE MEDICATIONS: Zyloprim 100 mg daily, Alphagan on drop twice a day, Cardizem 30 mg every 8 hours, Colace 100 mg at bedtime, Guaifenesin LA 600 mg twice a day, Ideal 5/325 one tablet every eight hours - hold for sedation, NovoLog injection insulin as instructed, Levemir FlexPen 8 units subcutaneously at bedtime, melatonin 6 mg at bedtime, Lopressor 25 mg every 8 hours, Coumadin as instructed, ProAir two puffs via inhaler as needed, glucose tablets six tablets as needed, Ativan 1 mg every 8 hours as needed, Antivert 12.5 mg every 8 hours as needed, nitroglycerin 0.4 mg sublingually as needed, Proventil two puffs via inhaler as needed, and DuoNeb every six hours while awake. CONDITION AT DISCHARGE: Stable. DISPOSITION: The patient was discharged to [facility] on a renal diet with activities as instructed. She would resume her hemodialysis as scheduled. HOSPITAL COURSE: This is an 86-year-old female who dialyzes on Mondays, Wednesdays, and Fridays, with end-stage renal disease in the setting of diabetes, hypertension, and chronic respiratory failure requiring O2, and paroxysmal atrial fibrillation, severe left ventricular hypertrophy with ejection fraction of 55%. She was just released to [facility] after hospitalization with acute respiratory failure. Pneumonia had be ruled out during the hospital stay, and it was felt that most of her respiratory issues were due to volume, and we did not do a very aggressive ultrafiltration to the point where we induced atrial fibrillation on two different dialysis session. Within 48 hours, we got off her 7 kilos of fluid, and her respiratory status improved before moving her to [facility], however, she got over there and at approximately 11:00 p.m. on the night prior to this admission, she required increased O2, and increasing respiratory distress occurred. She was sent back to the emergency department and was found to have a potassium of 6 despite dialysis on Monday prior to this admission, and a potassium 4.7 before her discharge. Her chest x-ray showed Discharge Summary [address] [place]. [address] NAME: JESSICA URENA : 32 STATUS : DIS IN PAT#: [id number] AGE: 86 ADM/REG DATE : 10/25/16 MR#: [id number] REPORT SERV DATE: 11/12/16 DICTATED BY: CLARK ADAMES DATE: 11/11/16 REPORT STATUS : Draft TRANSCRIBED BY: MODL DATE: 11/11/16 bilateral asymmetric patchy infiltrates and some mild vascular congestion. She was admitted to the hospital at this time for further evaluation and treatment. Upon admission, empiric antibiotics and nebulizers were started. She was placed on increased supplemental O2. Dialysis was going to be performed ,as well as ultrafiltration as able, and we would maintain her usual medication that did not include Coumadin. She was seen in consultation by Dr. Nelson Knott. 12-lead electrocardiogram demonstrated sinus arrhythmia with an average of 70 beats per minute. Left axis deviation, incomplete right bundle-branch block, and findings suggestive of anterior myocardial infarction. The patient subsequently developed atrial fibrillation with rapid ventricular response. She was treated with intravenous diltiazem per protocol. Cardiovascular evaluation was requested. The patient has a history of paroxysmal atrial fibrillation. Echocardiogram on 10/15/2016, demonstrated severe concentric left ventricular hypertrophy, biatrial enlargement, and moderate left ventricular diastolic dysfunction. It was felt that the patient's atrial fibrillation had resulted from hypertension, left atrial enlargement, untreated obstructive sleep apnea, and chronic pulmonary disease. She had been treated with chronic oral systemic anticoagulation with warfarin and rate control strategy with digoxin and diltiazem. The patient's atrial fibrillation was likely progressed, to persistent, and then permanent atrial fibrillation. It was suspected that the patient's respiratory failure was exacerbated by the loss of synchronized atrial contractions which can reduce stroke volume by approximately 30% in patients with noncompliant left ventricle. He recommended a rhythm control strategy. A modified barium swallow study was performed. No aspiration was seen. Aspiration precautions were in place. She had a normal respiratory effort. She had no edema. She was evaluated by Occupational Therapy. INR level decreased to 0.5. Home dose of Coumadin was going to be resumed. On 10/26/2016, she did complain of dyspnea on exertion, chest pain, and palpitation. She was in atrial fibrillation with an episode of rapid ventricular response on telemetry. She had 1+ pitting bilateral pedal edema. Metoprolol and diltiazem were continued. We were considering Propafenone at a low-dose to maintain sinus rhythm. She was in no acute distress. On 10/27/2016, her dyspnea had improved. She had no palpitations or chest pain. She was in atrial fibrillation with a controlled ventricular response. Digoxin was stopped. Hemodialysis therapy was held the following day. On 10/29/2016, INR level was 3.2. Coumadin was held that day. She still complained of abdominal pain. She had active bowel sounds. The pain was in her low back. Hemodialysis therapy continued. She did have a bowel movement. No blood was seen. Levemir was discontinued. A CT scan of the abdomen and pelvis with contrast was performed. A gallbladder ultrasound was obtained. Gallstones were seen. On 11/01/2016, she had no abdominal pain. She had some cough and shortness of breath earlier in the day. She continued to have a nonproductive cough. She had generalized weakness. Hemodialysis therapy continued. Discharge planning was performed. On 11/03/2016, her cough had improved. White count was 5.3. Creatinine was 5.84. Her INR level was 2.2. Discharge instructions were given. Due to her improved and stable condition, she was discharged to [facility] with the above-stated instructions. Information collected by: Alison Garcia I submit the above information as my discharge summary. Discharge Summary [place] [address] [facility] [address] NAME: JESSICA URENA : [birth year] STATUS : DIS IN PAT#: [id number] AGE: 86 ADM/REG DATE : 10/25/16 MR#: [id number] REPORT SERV DATE: 11/12/16 DICTATED BY: CLARK ADAMES DATE: 11/11/16 REPORT STATUS : Draft TRANSCRIBED BY: MODL DATE: 11/11/16 TG/PELON Clark Adames M.D. / [id number] CC: MD Prabhakar Bahena Jr., D.O. [facility] Nelson Knott III, M.D., [facility], [facility]
--- NOTE | ~2016-10-23 | HP ---
History And Physical [place] [id number] [place]. [address] NAME: JESSICA URENA : [birth year] STATUS : ADM Elizabeth PAT#: [id number] AGE: 86 ADM/REG DATE : 10/23/16 MR#: [id number] REPORT SERV DATE: 10/23/16 DICTATED BY: DATE: REPORT STATUS : Draft TRANSCRIBED BY: MODL DATE: 10/23/16 DATE OF ADMISSION: 10/23/2016 CHIEF COMPLAINT: Shortness of breath. HISTORY OF PRESENT ILLNESS: Ms Urena is an 86-year-old, black female, who dialyzes Monday, Monday, and Monday with end-stage renal disease in the setting of diabetes, hypertension, chronic respiratory failure, requiring O2 and paroxysmal atrial fibrillation, severe LVH with EF of 55%. She was just released to [facility] after hospitalization with acute respiratory failure. Pneumonia had been ruled out during the hospital stay and it was felt that most of her respiratory issues was due to volume and we did do a very aggressive UF to the point where we induced atrial fibrillation on two different dialysis sessions. We got off within 48 hours of her seven kilos of fluid and respiratory status had improved before moving her to [facility]; however, she got over there at approximately 11 p.m. last night and required increased O2 and increasing respiratory distress given that she was sent back to the emergency department. She was also found to have a potassium of 6 despite dialysis on Monday and a potassium of 4.7 before her discharge over there. Her chest x-ray shows bilateral asymmetric patchy infiltrates and some mild vascular congestion. Given all this, she is being admitted for further evaluation. PAST MEDICAL HISTORY: End-stage renal disease, paroxysmal atrial fibrillation and severe LVH with EF of 55, restrictive diastolic dysfunction, diabetes, obstructive sleep apnea, hypertension, gout, O2 dependence, osteoarthritis, bilateral knee and hip replacements. Also, in last hospitalization, she did have chest pain and elevated troponin and Cardiology saw the patient and no further workup was pursued given her medical problems and advanced age. SOCIAL HISTORY: The patient lives with son and does have secondhand smoke exposure. No alcohol or illicit drug use. FAMILY MEDICAL HISTORY: No end-stage renal disease. MEDICATIONS: Albuterol, allopurinol, Alphagan, digoxin, NovoLog, Levemir, Imdur, lisinopril, meclizine, and Coumadin. REVIEW OF SYSTEMS: 12-point review of systems was obtained, negative with the exception of that in the HPI. PHYSICAL EXAMINATION: VITAL SIGNS: Temp is 98.8, blood pressure is 118/47, pulse 82, respiratory rate 18, O2 saturation is 95% on 4 L. GENERAL: This is an ill-appearing elderly black female. She is awake, not oriented to year, she is oriented to place. HEENT: Normocephalic, atraumatic. Conjunctivae clear. Sclerae anicteric. Oral mucosa is very dry. NECK: I have not seen a neck vein distention. History And Physical [address] [place]. [address] NAME: JESSICA URENA : 32 STATUS : ADM [place] PAT#: [id number] AGE: 86 ADM/REG DATE : 10/23/16 MR#: [id number] REPORT SERV DATE: 10/23/16 DICTATED BY: DATE: REPORT STATUS : Draft TRANSCRIBED BY: MODL DATE: 10/23/16 LUNGS: Respirations are even, slightly labored. She does have rhonchi noted throughout. HEART: Rate is regular. She does have a 2/6 systolic ejection murmur. No rub or gallop. ABDOMEN: Soft, nontender. Bowel sounds active. No masses. No hepatosplenomegaly. No bruits. No CVA tenderness. BACK: Within normal limits. EXTREMITIES: Without any edema, cyanosis, or clubbing. SKIN: Dry, scaly, warm and no unusual rashes or skin lesions. NEURO: Generalized weakness. No focal deficits. PERTINENT LABORATORY AND X-RAY FINDINGS: Her pH was 7.37 with pCO2 of 39, pO2 of 97, bicarb of 21. She had a lactate of 0.9. Procalcitonin was negative. Influenza screen was negative. Chest x-ray findings as discussed above. Sodium 136, potassium 6, chloride 98, CO2 26, BUN 55, creatinine of 6.6, calcium of 7.8, albumin of 3.3, bilirubin 1.1. Alkaline phosphatase 273. SGOT of 31, SGPT of 11 and WBC 6,000, H and H 9 and 30, and platelets 221,000. IMPRESSION: 1. Acute on chronic respiratory failure. 2. Possible pneumonia. 3. End-stage renal disease. 4. Paroxysmal atrial fibrillation. 5. Diastolic dysfunction. 6. Diabetes. 7. Obstructive sleep apnea. 8. Altered mental status. PLAN: She is going to be admitted. Empiric antibiotics and nebulizers. We will go ahead and ask pulmonary to see again this hospitalization if her respiratory failure is not improving and has worsened again despite aggressive UF to the point of inducing atrial fibrillation with the aggressive UF. She will be placed on increased and supplemental O2. We will have dialysis today and ultrafiltrate as able and maintain usual medicines that does include Coumadin. Further orders and recommendations pending clinical course. LITTLE/MODL MEHRAN New / [id number] CC: Sameer Karimi MD
--- NOTE | ~2016-10-23 | CN ---
Consultation Report [facility] [address] [place]. [address] NAME: CHIKIS URENA : 32 STATUS : ADM Elizabeth PAT#: [id number] AGE: 86 ADM/REG DATE : 10/23/16 MR#: [id number] REPORT SERV DATE: 10/25/16 DICTATED BY: JO ANN KNOTT III DATE: 10/25/16 REPORT STATUS : Draft TRANSCRIBED BY: MODCorby DATE: 10/25/16 CONSULTATION DATE OF CONSULTATION: 10/25/2016 HISTORY OF PRESENT ILLNESS: Mrs. Chikis Urena is an 86-year-old female from [place], [place], referred for evaluation of recurrent symptomatic paroxysmal atrial fibrillation with a rapid ventricular response. The patient is followed by Dr. Antony Aquino at [facility]. The patient has a history of paroxysmal atrial fibrillation. An echocardiogram performed on 10/15/2016 demonstrated severe concentric left ventricular hypertrophy, biatrial enlargement, and moderate left ventricular diastolic dysfunction. The patient did well until 10/23/2016. At that time, the patient noted a significant increase in her dyspnea and the onset of a cough productive of a white sputum. The patient denied chest pain and palpitations. The patient was subsequently seen in [facility] Emergency Room. An arterial blood gas demonstrated a pH is 7.37, pCO2 of 39, PO2 of 97, and 97.3% saturation. The patient's potassium was 6.0, BUN 55, and creatinine 6.63. White blood cell count was 6100, hemoglobin 9.8, hematocrit 30.2, and platelet count was 227,000. A chest radiograph reportedly demonstrated an increase in pulmonary vascular markings with a right lower lobe infiltrate. A 12-lead electrocardiogram demonstrated sinus arrhythmia with an average rate of 70 beats per minute, left axis deviation, incomplete right bundle-branch block, and findings suggestive of an anterior myocardial infarction. The patient subsequently developed atrial fibrillation with a rapid ventricular response. The patient was treated with intravenous diltiazem per protocol. The patient was referred for cardiovascular evaluation. The patient has a history of hypertension, biatrial enlargement, untreated obstructive sleep apnea, and chronic lung disease. The patient has no history of hyperthyroidism, rheumatic heart disease, atrial septal defect, constrictive pericarditis, pulmonary thromboembolism, or significant alcohol use. The patient has no history of syncope or cardiac murmur. The patient's documented coronary artery disease risk factors include diabetes mellitus, obesity, hyperlipoproteinemia, and hypertension. PAST MEDICAL HISTORY: 1. Type 2 diabetes mellitus. 2. Obesity. 3. Hyperlipoproteinemia. 4. Hypertension. 5. End-stage renal disease. 6. Obstructive sleep apnea, CPAP intolerant. 7. Gout. 8. Chronic lung disease. 9. Arthritis. Consultation Report [facility] [address] [place]. [address] NAME: CHIKIS URENA : 32 STATUS : ADM Elizabeth PAT#: [id number] AGE: 86 ADM/REG DATE : 10/23/16 MR#: [id number] REPORT SERV DATE: 10/25/16 DICTATED BY: JO ANN KNOTT III DATE: 10/25/16 REPORT STATUS : Draft TRANSCRIBED BY: PELON DATE: 10/25/16 10.Peripheral neuropathy. 11.Anemia of chronic disease. OPERATIVE PROCEDURES: 1. Status post bilateral total knee replacements. 2. Status post right hip replacement. 3. Status post left AV fistula. 4. Status post right AV fistula. 5. Status post abdominal hysterectomy. 6. Status post umbilical herniorrhaphy. ALLERGIES: NONE. MEDICATIONS: 1. Albuterol aerosol q.6 hours. 2. Allopurinol 100 mg p.o. daily. 3. Brimonidine b.i.d. 4. Digoxin 0.25 mg p.o. on Tuesdays, , and Saturdays. 5. Intravenous diltiazem per protocol. 6. Insulin per sliding scale. 7. Isosorbide mononitrate ER 30 mg p.o. daily. 8. Zosyn 3.375 g IV q.12 hours. 9. Warfarin as directed. FAMILY HISTORY: Positive for diabetes mellitus and arthritis. Negative for myocardial infarction, stroke, seizures, cancer, kidney disease, anemia, and mental illness. SOCIAL HISTORY: The patient has a five-pack year history of cigarette smoking. The patient discontinued cigarette smoking in her 20s. The patient denied any history of alcohol use. PHYSICAL EXAMINATION: GENERAL: Demonstrated an alert, elderly female, in no acute distress. VITAL SIGNS: Demonstrated a temperature of 97.4 orally, respiratory rate of 18 breaths per minute, and a blood pressure of 116/57 mmHg with a heart rate of 84 beats per minute. SKIN: Warm and dry. There were multiple well-healed surgical scars. NECK: Supple. There was decreased range of motion. There was no appreciable lymphadenopathy or thyromegaly. There was no appreciable jugular venous distention at 90 degrees. There were no carotid bruits. BACK: Examination of the back demonstrated no spinal or costovertebral angle tenderness. CHEST: Examination of the chest demonstrated bilateral inspiratory crackles extending two- thirds of the way up the posterior lung toussaint. There were scattered expiratory rhonchi. There were no wheezes or pleural rubs. There was symmetrical expansion of the chest. CARDIAC: Examination demonstrated a nonpalpable apical impulse. There was an irregularly irregular rhythm and rate with a variable intensity first heart sound. There was no appreciable murmur, rub, or gallop. There were no thrills or heaves. Consultation Report [address] [place]. [address] NAME: CHIKIS URENA : 32 STATUS : ADM Elizabeth PAT#: [id number] AGE: 86 ADM/REG DATE : 10/23/16 MR#: [id number] REPORT SERV DATE: 10/25/16 DICTATED BY: JO ANN KNOTT III DATE: 10/25/16 REPORT STATUS : Draft TRANSCRIBED BY: PELON DATE: 10/25/16 ABDOMEN: Examination of the abdomen demonstrated that it was obese, soft, and protuberant. There was no appreciable hepatosplenomegaly or masses. Bowel sounds were intact. EXTREMITIES: Examination of the extremities demonstrated that they were symmetrical. There was decreased range of motion. There was trace bilateral pedal edema. There was no cyanosis or clubbing. The right radial pulse was trace to nonpalpable, and the left radial pulse was 2+. The right dorsalis pedis pulse was 2+ and the left dorsalis pedis pulse was trace to nonpalpable. The posterior tibial pulses were trace to nonpalpable. ASSESSMENT: Mrs. Chikis Urena is an 86-year-old female with four other risk factors for coronary atherosclerotic disease (i.e. diabetes mellitus, obesity, hyperlipoproteinemia, hypertension), heart failure with preserved ejection fraction, and recurrent symptomatic paroxysmal atrial fibrillation with a rapid ventricular response. The patient's atrial fibrillation has resulted from hypertension, left atrial enlargement, untreated obstructive sleep apnea, and chronic pulmonary disease. The patient has been treated with chronic oral systemic anticoagulation with warfarin and a rate control strategy with digoxin/diltiazem. The patient's atrial fibrillation will likely progress to persistent and then permanent atrial fibrillation. Further, I suspect that the patient's respiratory failure is exacerbated by the loss of synchronized atrial contraction (which can reduce stroke volume by approximately 30% in patients with noncompliant left ventricle). I would consider a rhythm control strategy. I will discuss the specifics of antiarrhythmic therapy with you. IRIS/PELON Jo Ann Knott III, M.D., [facility], [facility] / [id number] CC: MD Austen Bahena M.D. Walter Lee Few, M.D.
[2016-10-23 02:14] LABS: CARBOXYHEMOGLOBIN 1.8 % (0-3); DEVICE NC; HCO3 (ACTUAL BICARBONATE) 21.9 MEQ/L (23-27); HEMOBLOGIN CONTENT 9.3 G/DL (12-16); INSTRUMENT SERIAL # 8087; METHEMOGLOBIN 0.2 % (0-3); O2 CONTENT 12.6 VOL% (18-24); PCO2 (CO2 TENSION) 39 MMHG (35-45); PO2 (O2 TENSION) 97 MMHG (79-93); SAMPLE Arterial; pH 7.37 (7.37-7.43)
[~2016-10-23 02:18] MED LIST changes: +COUMADIN3 MG PO; +LEVEMFLXPN SC
[2016-10-23 02:52] LABS: BASOPHILS 0.3 %; BASOPHILS ABSOLUTE 0.02 10/3/uL (0.0-0.16); EOSINOPHILS 0.3 %; EOSINOPHILS ABSOLUTE 0.02 10/3/uL (0.0-0.53); ER CBC TAT 0 Hrs 08 Mins; HEMATOCRIT 30.2 % (36.0-48.0); HEMOGLOBIN 9.8 g/dL (12.0-16.0); IMMATURE GRANULOCYTES 0.5 %; IMMATURE GRANULOCYTES ABSOLUTE 0.03 10/3/uL (0.0-0.11); LYMPHOCYTES 14.3 %; LYMPHOCYTES ABSOLUTE 0.87 10/3/uL (0.67-4.30); MANUAL DIFF NO %; MEAN CORPUS HGB CONC 32.5 g/dL (32.0-36.0); MEAN CORPUSCULAR HEMOGLOB 30.9 pg (26.0-34.0); MEAN CORPUSCULAR VOLUME 95.3 fL (80-100); MEAN PLATELET VOLUME 9.3 fL (9.2-13.0); MONOCYTES 9.1 %; MONOCYTES ABSOLUTE 0.55 10/3/uL (0.21-1.20); NEUTROPHILS 75.5 %; NEUTROPHILS ABSOLUTE 4.58 10/3/uL (2.02-8.40); PLATELET COUNT 227 10/3/uL (150-400); RBC DISTRIBUTION WIDTH 15.1 % (12.0-16.0); RED CELL COUNT 3.17 10/6/uL (4.0-5.6); WHITE BLOOD CELLS 6.1 10/3/uL (4.5-10.5)
[2016-10-23 02:59] LABS: PROTIME (NOT ORD) 31.2 SEC (12.0-14.5)
[2016-10-23 03:09] LABS: A/G RATIO 0.9 (0.7-1.9); ALBUMIN 3.3 G/DL (3.5-5.0); CALCIUM, SERUM 7.8 MG/DL (8.5-10.4); CHLORIDE, SERUM 98 MMOL/L (96-112); CO2 (CARBON DIOXIDE) 26 MMOL/L (24-34); GLOBULIN 3.5 G/DL (2.5-4.1); GLUCOSE, SERUM 95 MG/DL (60-99); SGPT(ALT) 11 U/L (5-65); SODIUM, SERUM 136 MMOL/L (135-148); TOTAL PROTEIN 6.8 G/DL (6.0-8.5)
[2016-10-23 03:10] LABS: BUN (BLOOD UREA NITROGEN) 55 MG/DL (6-23); CREATININE 6.63 MG/DL (0.55-1.02); GFR AFRICAN AMERICAN 6 ML/MIN (>=60); GFR NON AFRICAN AMERICAN 5 ML/MIN (>=60); TOTAL BILIRUBIN 1.1 MG/DL (0-1.2)
[2016-10-23 03:11] LABS: ALKALINE PHOSPHATASE 273 U/L (45-117); SGOT(AST) 31 U/L (5-40)
[2016-10-23 03:19] LABS: LACTATE 0.9 MMOL/L (0.3-2.4)
[2016-10-23 03:43] LABS: INFLUENZA A SCREEN NEGATIVE (NEGATIVE); INFLUENZA B SCREEN NEGATIVE (NEGATIVE)
[2016-10-23 11:57] LABS: ALLENS TEST Pos; BE (BASE EXCESS) -3.6 MEQ/L (0 +/- 2.5); CARBOXYHEMOGLOBIN 0.1 % (0-3); DEVICE NC; HCO3 (ACTUAL BICARBONATE) 22.9 MEQ/L (23-27); HEMOBLOGIN CONTENT 9.5 G/DL (12-16); INSTRUMENT SERIAL # 11843; METHEMOGLOBIN 0.4 % (0-3); O2 CONTENT 12.5 VOL% (18-24); PCO2 (CO2 TENSION) 48 MMHG (35-45); PO2 (O2 TENSION) 74 MMHG (79-93); SAMPLE Arterial
[2016-10-23 12:05] LABS: DIGOXIN 1.7 NG/ML (0.8-2.0)
[2016-10-24 06:37] LABS: INTERNATIONAL NORMAL RATI 3.6 UNITS (-); PROTIME (NOT ORD) 35.5 SEC (12.0-14.5)
[2016-10-24 16:39] LABS: BASOPHILS 0.2 %; BASOPHILS ABSOLUTE 0.01 10/3/uL (0.0-0.16); EOSINOPHILS 0 %; HEMATOCRIT 28.4 % (36.0-48.0); HEMOGLOBIN 9.2 g/dL (12.0-16.0); IMMATURE GRANULOCYTES 0.4 %; IMMATURE GRANULOCYTES ABSOLUTE 0.02 10/3/uL (0.0-0.11); LYMPHOCYTES 13.7 %; LYMPHOCYTES ABSOLUTE 0.68 10/3/uL (0.67-4.30); MEAN CORPUS HGB CONC 32.4 g/dL (32.0-36.0); MEAN CORPUSCULAR HEMOGLOB 29.9 pg (26.0-34.0); MEAN PLATELET VOLUME 9.4 fL (9.2-13.0); MONOCYTES 13.9 %; MONOCYTES ABSOLUTE 0.69 10/3/uL (0.21-1.20); NEUTROPHILS 71.8 %; NEUTROPHILS ABSOLUTE 3.57 10/3/uL (2.02-8.40); PLATELET COUNT 263 10/3/uL (150-400); RBC DISTRIBUTION WIDTH 15.4 % (12.0-16.0); RED CELL COUNT 3.08 10/6/uL (4.0-5.6)
[2016-10-24 16:41] LABS: MEAN CORPUSCULAR VOLUME 92.2 fL (80-100)
[2016-10-24 16:42] LABS: MANUAL DIFF NO %
[2016-10-24 16:52] LABS: ALBUMIN 3.3 G/DL (3.5-5.0); BUN (BLOOD UREA NITROGEN) 55 MG/DL (6-23); CHLORIDE, SERUM 104 MMOL/L (96-112); CO2 (CARBON DIOXIDE) 24 MMOL/L (24-34); PHOSPHORUS, SERUM 4.1 MG/DL (2.5-4.5); SODIUM, SERUM 142 MMOL/L (135-148); VANCOMYCIN TROUGH 22.8 MCG/ML (10.0-20.0)
[2016-10-24 16:53] LABS: CREATININE 5.55 MG/DL (0.55-1.02); GFR AFRICAN AMERICAN 7 ML/MIN (>=60); GFR NON AFRICAN AMERICAN 6 ML/MIN (>=60); GLUCOSE, SERUM 154 MG/DL (60-99); POTASSIUM, SERUM 4.3 MMOL/L (3.5-5.3)
[2016-10-25 06:45] LABS: BASOPHILS 0.2 %; BASOPHILS ABSOLUTE 0.01 10/3/uL (0.0-0.16); EOSINOPHILS 0.2 %; EOSINOPHILS ABSOLUTE 0.01 10/3/uL (0.0-0.53); HEMATOCRIT 29.2 % (36.0-48.0); HEMOGLOBIN 9.4 g/dL (12.0-16.0); IMMATURE GRANULOCYTES 0.9 %; IMMATURE GRANULOCYTES ABSOLUTE 0.04 10/3/uL (0.0-0.11); LYMPHOCYTES 20.3 %; LYMPHOCYTES ABSOLUTE 0.89 10/3/uL (0.67-4.30); MANUAL DIFF NO %; MEAN CORPUS HGB CONC 32.2 g/dL (32.0-36.0); MEAN CORPUSCULAR HEMOGLOB 30.2 pg (26.0-34.0); MEAN CORPUSCULAR VOLUME 93.9 fL (80-100); NEUTROPHILS 62.4 %; NEUTROPHILS ABSOLUTE 2.73 10/3/uL (2.02-8.40); PLATELET COUNT 270 10/3/uL (150-400); RBC DISTRIBUTION WIDTH 15.3 % (12.0-16.0); RED CELL COUNT 3.11 10/6/uL (4.0-5.6); WHITE BLOOD CELLS 4.4 10/3/uL (4.5-10.5)
[2016-10-25 06:52] LABS: INTERNATIONAL NORMAL RATI 2.5 UNITS (-)
[2016-10-25 06:53] LABS: PROTIME (NOT ORD) 26.9 SEC (12.0-14.5)
[2016-10-26 12:43] LABS: BASOPHILS 0.2 %; BASOPHILS ABSOLUTE 0.01 10/3/uL (0.0-0.16); EOSINOPHILS 1.2 %; EOSINOPHILS ABSOLUTE 0.06 10/3/uL (0.0-0.53); HEMOGLOBIN 8.4 g/dL (12.0-16.0); IMMATURE GRANULOCYTES 1.2 %; IMMATURE GRANULOCYTES ABSOLUTE 0.06 10/3/uL (0.0-0.11); LYMPHOCYTES 15.6 %; LYMPHOCYTES ABSOLUTE 0.81 10/3/uL (0.67-4.30); MEAN CORPUS HGB CONC 33.1 g/dL (32.0-36.0); MEAN CORPUSCULAR HEMOGLOB 30.2 pg (26.0-34.0); MEAN CORPUSCULAR VOLUME 91.4 fL (80-100); MEAN PLATELET VOLUME 9.3 fL (9.2-13.0); MONOCYTES ABSOLUTE 0.73 10/3/uL (0.21-1.20); NEUTROPHILS 67.8 %; NEUTROPHILS ABSOLUTE 3.53 10/3/uL (2.02-8.40); PLATELET COUNT 257 10/3/uL (150-400); RBC DISTRIBUTION WIDTH 15.3 % (12.0-16.0); RED CELL COUNT 2.78 10/6/uL (4.0-5.6); WHITE BLOOD CELLS 5.2 10/3/uL (4.5-10.5)
[2016-10-26 12:44] LABS: HEMATOCRIT 25.4 % (36.0-48.0); MANUAL DIFF NO %
[2016-10-26 12:47] LABS: INTERNATIONAL NORMAL RATI 2.3 UNITS (-); PROTIME (NOT ORD) 25.3 SEC (12.0-14.5)
[2016-10-26 12:57] LABS: BUN (BLOOD UREA NITROGEN) 52 MG/DL (6-23); CHLORIDE, SERUM 103 MMOL/L (96-112); CO2 (CARBON DIOXIDE) 25 MMOL/L (24-34); CREATININE 5.44 MG/DL (0.55-1.02); GFR AFRICAN AMERICAN 8 ML/MIN (>=60); GFR NON AFRICAN AMERICAN 7 ML/MIN (>=60); GLUCOSE, SERUM 132 MG/DL (60-99); PHOSPHORUS, SERUM 3.4 MG/DL (2.5-4.5); POTASSIUM, SERUM 4.2 MMOL/L (3.5-5.3); SODIUM, SERUM 142 MMOL/L (135-148); VANCOMYCIN TROUGH 21.2 MCG/ML (10.0-20.0)
[2016-10-27 07:51] LABS: BASOPHILS 0.2 %; BASOPHILS ABSOLUTE 0.01 10/3/uL (0.0-0.16); EOSINOPHILS 3.6 %; HEMOGLOBIN 9.4 g/dL (12.0-16.0); IMMATURE GRANULOCYTES 1.1 %; IMMATURE GRANULOCYTES ABSOLUTE 0.06 10/3/uL (0.0-0.11); LYMPHOCYTES 24.5 %; LYMPHOCYTES ABSOLUTE 1.35 10/3/uL (0.67-4.30); MEAN CORPUS HGB CONC 32.4 g/dL (32.0-36.0); MEAN CORPUSCULAR HEMOGLOB 30.1 pg (26.0-34.0); MEAN CORPUSCULAR VOLUME 92.9 fL (80-100); MEAN PLATELET VOLUME 9.3 fL (9.2-13.0); MONOCYTES 13.6 %; MONOCYTES ABSOLUTE 0.75 10/3/uL (0.21-1.20); NEUTROPHILS ABSOLUTE 3.15 10/3/uL (2.02-8.40); RBC DISTRIBUTION WIDTH 15.3 % (12.0-16.0); RED CELL COUNT 3.12 10/6/uL (4.0-5.6); WHITE BLOOD CELLS 5.5 10/3/uL (4.5-10.5)
[2016-10-27 07:52] LABS: MANUAL DIFF NO %; PLATELET COUNT 336 10/3/uL (150-400)
[2016-10-27 07:58] LABS: PROTIME (NOT ORD) 22.5 SEC (12.0-14.5)
[2016-10-27 08:03] LABS: ALBUMIN 3.3 G/DL (3.5-5.0); BUN (BLOOD UREA NITROGEN) 25 MG/DL (6-23); CALCIUM, SERUM 8.4 MG/DL (8.5-10.4); CHLORIDE, SERUM 99 MMOL/L (96-112); CO2 (CARBON DIOXIDE) 28 MMOL/L (24-34); CREATININE 3.81 MG/DL (0.55-1.02); GFR AFRICAN AMERICAN 12 ML/MIN (>=60); GFR NON AFRICAN AMERICAN 10 ML/MIN (>=60); GLUCOSE, SERUM 90 MG/DL (60-99); PHOSPHORUS, SERUM 2.8 MG/DL (2.5-4.5); POTASSIUM, SERUM 3.8 MMOL/L (3.5-5.3); SODIUM, SERUM 137 MMOL/L (135-148)
[2016-10-28 08:37] LABS: BASOPHILS 0.3 %; BASOPHILS ABSOLUTE 0.02 10/3/uL (0.0-0.16); EOSINOPHILS 6.4 %; EOSINOPHILS ABSOLUTE 0.38 10/3/uL (0.0-0.53); HEMATOCRIT 24.1 % (36.0-48.0); HEMOGLOBIN 8.1 g/dL (12.0-16.0); IMMATURE GRANULOCYTES 1.5 %; IMMATURE GRANULOCYTES ABSOLUTE 0.09 10/3/uL (0.0-0.11); LYMPHOCYTES 37.1 %; LYMPHOCYTES ABSOLUTE 2.19 10/3/uL (0.67-4.30); MEAN CORPUS HGB CONC 33.6 g/dL (32.0-36.0); MEAN CORPUSCULAR HEMOGLOB 30.7 pg (26.0-34.0); MEAN CORPUSCULAR VOLUME 91.3 fL (80-100); MEAN PLATELET VOLUME 9.3 fL (9.2-13.0); MONOCYTES 16.8 %; MONOCYTES ABSOLUTE 0.99 10/3/uL (0.21-1.20); NEUTROPHILS 37.9 %; NEUTROPHILS ABSOLUTE 2.23 10/3/uL (2.02-8.40); NUCLEATED RED BLOOD CELLS 0.5 /100WBC (0-0); PLATELET COUNT 312 10/3/uL (150-400); RBC DISTRIBUTION WIDTH 15.5 % (12.0-16.0); RED CELL COUNT 2.64 10/6/uL (4.0-5.6); WHITE BLOOD CELLS 5.9 10/3/uL (4.5-10.5)
[2016-10-28 08:38] LABS: MANUAL DIFF NO %
[2016-10-28 08:43] LABS: ALBUMIN 3.3 G/DL (3.5-5.0); CALCIUM, SERUM 7.8 MG/DL (8.5-10.4); CHLORIDE, SERUM 101 MMOL/L (96-112); CO2 (CARBON DIOXIDE) 25 MMOL/L (24-34); GLUCOSE, SERUM 74 MG/DL (60-99); POTASSIUM, SERUM 4.2 MMOL/L (3.5-5.3); SODIUM, SERUM 140 MMOL/L (135-148)
[2016-10-28 08:45] LABS: BUN (BLOOD UREA NITROGEN) 34 MG/DL (6-23)
[2016-10-28 08:47] LABS: CREATININE 5.12 MG/DL (0.55-1.02); GFR AFRICAN AMERICAN 8 ML/MIN (>=60); GFR NON AFRICAN AMERICAN 7 ML/MIN (>=60); PHOSPHORUS, SERUM 3.8 MG/DL (2.5-4.5)
[2016-10-28 17:04] LABS: DIRECT BILIRUBIN 0.2 MG/DL (0.0-0.4); SGOT(AST) 24 U/L (5-40); SGPT(ALT) 13 U/L (5-65)
[2016-10-28 17:05] LABS: ALKALINE PHOSPHATASE 183 U/L (45-117)
[2016-10-28 18:45] LABS: INDIRECT BILIRUBIN(NOT ORDER) 0.4 MG/DL (0.1-0.9); TOTAL PROTEIN 6.2 G/DL (6.0-8.5)
[2016-10-28 18:47] LABS: TOTAL BILIRUBIN 0.6 MG/DL (0-1.2)
[2016-10-29 08:55] LABS: BASOPHILS 0.5 %; BASOPHILS ABSOLUTE 0.03 10/3/uL (0.0-0.16); EOSINOPHILS 7.4 %; EOSINOPHILS ABSOLUTE 0.44 10/3/uL (0.0-0.53); HEMATOCRIT 25.6 % (36.0-48.0); HEMOGLOBIN 8.4 g/dL (12.0-16.0); IMMATURE GRANULOCYTES 0.7 %; IMMATURE GRANULOCYTES ABSOLUTE 0.04 10/3/uL (0.0-0.11); LYMPHOCYTES 33.3 %; LYMPHOCYTES ABSOLUTE 1.97 10/3/uL (0.67-4.30); MEAN CORPUS HGB CONC 32.8 g/dL (32.0-36.0); MEAN CORPUSCULAR HEMOGLOB 30.7 pg (26.0-34.0); MEAN CORPUSCULAR VOLUME 93.4 fL (80-100); MEAN PLATELET VOLUME 9.2 fL (9.2-13.0); MONOCYTES 12.5 %; MONOCYTES ABSOLUTE 0.74 10/3/uL (0.21-1.20); NEUTROPHILS 45.6 %; PLATELET COUNT 342 10/3/uL (150-400); RBC DISTRIBUTION WIDTH 15.5 % (12.0-16.0); RED CELL COUNT 2.74 10/6/uL (4.0-5.6); WHITE BLOOD CELLS 5.9 10/3/uL (4.5-10.5)
[2016-10-29 08:56] LABS: MANUAL DIFF NO %
[2016-10-29 09:03] LABS: CALCIUM, SERUM 7.6 MG/DL (8.5-10.4); CHLORIDE, SERUM 102 MMOL/L (96-112); CO2 (CARBON DIOXIDE) 26 MMOL/L (24-34); GLUCOSE, SERUM 65 MG/DL (60-99); POTASSIUM, SERUM 4.5 MMOL/L (3.5-5.3); SODIUM, SERUM 139 MMOL/L (135-148)
[2016-10-29 09:06] LABS: BUN (BLOOD UREA NITROGEN) 41 MG/DL (6-23); CREATININE 6.04 MG/DL (0.55-1.02); GFR AFRICAN AMERICAN 7 ML/MIN (>=60); GFR NON AFRICAN AMERICAN 6 ML/MIN (>=60)
[2016-10-29 10:56] LABS: INTERNATIONAL NORMAL RATI 3.2 UNITS (-)
[2016-10-29 10:59] LABS: PROTIME (NOT ORD) 32.8 SEC (12.0-14.5)
[2016-10-31 13:59] LABS: BASOPHILS 0.3 %; BASOPHILS ABSOLUTE 0.02 10/3/uL (0.0-0.16); EOSINOPHILS 4.5 %; EOSINOPHILS ABSOLUTE 0.26 10/3/uL (0.0-0.53); HEMATOCRIT 23.9 % (36.0-48.0); HEMOGLOBIN 7.9 g/dL (12.0-16.0); IMMATURE GRANULOCYTES 0.3 %; IMMATURE GRANULOCYTES ABSOLUTE 0.02 10/3/uL (0.0-0.11); LYMPHOCYTES 14.2 %; LYMPHOCYTES ABSOLUTE 0.82 10/3/uL (0.67-4.30); MEAN CORPUS HGB CONC 33.1 g/dL (32.0-36.0); MEAN CORPUSCULAR HEMOGLOB 30.9 pg (26.0-34.0); MEAN CORPUSCULAR VOLUME 93.4 fL (80-100); MEAN PLATELET VOLUME 9.3 fL (9.2-13.0); MONOCYTES ABSOLUTE 0.81 10/3/uL (0.21-1.20); NEUTROPHILS 66.7 %; NEUTROPHILS ABSOLUTE 3.85 10/3/uL (2.02-8.40); PLATELET COUNT 328 10/3/uL (150-400); RBC DISTRIBUTION WIDTH 16.1 % (12.0-16.0); RED CELL COUNT 2.56 10/6/uL (4.0-5.6); WHITE BLOOD CELLS 5.8 10/3/uL (4.5-10.5)
[2016-10-31 14:02] LABS: MANUAL DIFF NO %
[2016-10-31 14:06] LABS: INTERNATIONAL NORMAL RATI 3.5 UNITS (-); PROTIME (NOT ORD) 34.9 SEC (12.0-14.5)
[2016-10-31 14:12] LABS: ALBUMIN 2.9 G/DL (3.5-5.0); BUN (BLOOD UREA NITROGEN) 36 MG/DL (6-23); CALCIUM, SERUM 7.6 MG/DL (8.5-10.4); CHLORIDE, SERUM 103 MMOL/L (96-112); CO2 (CARBON DIOXIDE) 25 MMOL/L (24-34); CREATININE 5.76 MG/DL (0.55-1.02); GFR AFRICAN AMERICAN 7 ML/MIN (>=60); GFR NON AFRICAN AMERICAN 6 ML/MIN (>=60); GLUCOSE, SERUM 101 MG/DL (60-99); PHOSPHORUS, SERUM 4.4 MG/DL (2.5-4.5); POTASSIUM, SERUM 4.3 MMOL/L (3.5-5.3); SODIUM, SERUM 139 MMOL/L (135-148)
[2016-11-01 05:06] LABS: INTERNATIONAL NORMAL RATI 3.1 UNITS (-); PROTIME (NOT ORD) 31.8 SEC (12.0-14.5)
[2016-11-02 12:23] LABS: BASOPHILS 0.6 %; BASOPHILS ABSOLUTE 0.03 10/3/uL (0.0-0.16); EOSINOPHILS 1.3 %; EOSINOPHILS ABSOLUTE 0.07 10/3/uL (0.0-0.53); HEMATOCRIT 25.4 % (36.0-48.0); HEMOGLOBIN 8.2 g/dL (12.0-16.0); IMMATURE GRANULOCYTES 0.4 %; IMMATURE GRANULOCYTES ABSOLUTE 0.02 10/3/uL (0.0-0.11); LYMPHOCYTES 16.5 %; LYMPHOCYTES ABSOLUTE 0.87 10/3/uL (0.67-4.30); MEAN CORPUS HGB CONC 32.3 g/dL (32.0-36.0); MEAN CORPUSCULAR HEMOGLOB 30.6 pg (26.0-34.0); MEAN CORPUSCULAR VOLUME 94.8 fL (80-100); MONOCYTES 15.5 %; MONOCYTES ABSOLUTE 0.82 10/3/uL (0.21-1.20); NEUTROPHILS 65.7 %; NEUTROPHILS ABSOLUTE 3.47 10/3/uL (2.02-8.40); PLATELET COUNT 282 10/3/uL (150-400); RED CELL COUNT 2.68 10/6/uL (4.0-5.6); WHITE BLOOD CELLS 5.3 10/3/uL (4.5-10.5)
[2016-11-02 12:24] LABS: MANUAL DIFF NO %
[2016-11-02 12:31] LABS: INTERNATIONAL NORMAL RATI 2.6 UNITS (-); PROTIME (NOT ORD) 27.4 SEC (12.0-14.5)
[2016-11-02 12:36] LABS: ALBUMIN 2.7 G/DL (3.5-5.0); CALCIUM, SERUM 7.7 MG/DL (8.5-10.4); CHLORIDE, SERUM 104 MMOL/L (96-112); CO2 (CARBON DIOXIDE) 26 MMOL/L (24-34); CREATININE 5.84 MG/DL (0.55-1.02); GFR AFRICAN AMERICAN 7 ML/MIN (>=60); GFR NON AFRICAN AMERICAN 6 ML/MIN (>=60); PHOSPHORUS, SERUM 4.3 MG/DL (2.5-4.5); SODIUM, SERUM 140 MMOL/L (135-148)
[2016-11-02 12:37] LABS: BUN (BLOOD UREA NITROGEN) 28 MG/DL (6-23); GLUCOSE, SERUM 156 MG/DL (60-99)
[2016-11-03 04:35] LABS: INTERNATIONAL NORMAL RATI 2.2 UNITS (-); PROTIME (NOT ORD) 24.3 SEC (12.0-14.5)
== END 2016-11-03 15:18 | DRG 291 ==
LOC: ER 02:18 → 2SO 06:14
PROVIDERS: Hospitalist; Internal Medicine Nephrology; Nurse Practitioner; Registered Nurse
PROC: 5A1D60Z (ICD-10-PCS; principal; 2016-10-23)
DX: I13.2 Hypertensive heart and chronic kidney disease with heart failure and with stage 5 chronic kidney disease, or end stage renal disease (principal); J96.21 Acute and chronic respiratory failure with hypoxia; J18.9 Pneumonia, unspecified organism; N17.9 Acute kidney failure, unspecified; N18.6 End stage renal disease; E11.22 Type 2 diabetes mellitus with diabetic chronic kidney disease; E11.42 Type 2 diabetes mellitus with diabetic polyneuropathy; Z99.81 Dependence on supplemental oxygen; I50.42 Chronic combined systolic (congestive) and diastolic (congestive) heart failure; I48.0 Paroxysmal atrial fibrillation; G47.33 Obstructive sleep apnea (adult) (pediatric); M10.9 Gout, unspecified; E87.5 Hyperkalemia; M19.90 Unspecified osteoarthritis, unspecified site; Z96.653 Presence of artificial knee joint, bilateral; Z96.643 Presence of artificial hip joint, bilateral; E78.5 Hyperlipidemia, unspecified; E66.9 Obesity, unspecified; J44.9 Chronic obstructive pulmonary disease, unspecified; Z99.2 Dependence on renal dialysis; Z79.4 Long term (current) use of insulin; Z79.01 Long term (current) use of anticoagulants; Z83.3 Family history of diabetes mellitus; Z82.61 Family history of arthritis
CPT/HCPCS: 36600; 71010; 71020; 74000; 74177; 74230; 76705; 80053; 80069; 80076; 80162; 80202; 82150; 82805; 82962; 83605; 83690; 83735; 84145; 85025; 85610; 85730; 87040; 87804; 92611-GN; 93005; 94640; 96365; 96367; 96368; 96375; 97110-GP; 97116-GP; 97162-GP; 97165-GO; 97535-GO; 99291; A9270-GY; G0257; G8978-CK-GP; G8979-CI-GP; G8987-CK-GO; G8988-CJ-GO; G8996-CJ-GN; G8997-CJ-GN; G8998-CJ-GN; J0610; J0692; J2405; J2543; J2930; J3370; P9047; Q9967